=== PATIENT | female | born 1940 | race Caucasian/White ===

== ENCOUNTER → 2022-04-03 13:59 | Outpatient (BNVA) | payer MEDICARE, OTHER, SELFPAY | PROVIDERS: Family Provider Nurse Practitioner; PCP Student in an Organized Health Care Education/Training Program; Visit Provider Specialist | DX: M17.12 Unilateral primary osteoarthritis, left knee (principal) | CPT/HCPCS: 20610; 73560; 73565; 99203; 99204; J7326 ==

== ENCOUNTER → 2022-07-25 10:41 | Outpatient (BNVA) | payer MEDICARE, OTHER, SELFPAY | PROVIDERS: Family Provider Nurse Practitioner; PCP Student in an Organized Health Care Education/Training Program; Visit Provider Internal Medicine Cardiovascular Disease | DX: I25.10 Atherosclerotic heart disease of native coronary artery without angina pectoris (principal); M17.12 Unilateral primary osteoarthritis, left knee; I10 Essential (primary) hypertension; E78.2 Mixed hyperlipidemia; Z87.891 Personal history of nicotine dependence | CPT/HCPCS: 99213 ==

== ENCOUNTER → 2023-04-30 15:18 | Outpatient (BNVA) | payer MEDICARE, OTHER, SELFPAY | PROVIDERS: Family Provider Nurse Practitioner; PCP Registered Nurse; Referring Provider Registered Nurse; Visit Provider Internal Medicine | DX: E83.52 Hypercalcemia; I25.10 Atherosclerotic heart disease of native coronary artery without angina pectoris; I10 Essential (primary) hypertension; E78.5 Hyperlipidemia, unspecified | CPT/HCPCS: 80053; 82306; 82310; 83970; 99204 ==

== ENCOUNTER → 2023-07-02 10:57 | Outpatient (BNVA) | payer MEDICARE, OTHER, SELFPAY | PROVIDERS: Family Provider Nurse Practitioner; PCP Registered Nurse; Visit Provider Internal Medicine Cardiovascular Disease | DX: I25.10 Atherosclerotic heart disease of native coronary artery without angina pectoris (principal); I10 Essential (primary) hypertension; E78.2 Mixed hyperlipidemia; I65.29 Occlusion and stenosis of unspecified carotid artery; Z87.891 Personal history of nicotine dependence | CPT/HCPCS: 99214 ==

== ENCOUNTER 2023-07-14 07:33 | Outpatient (CLI) | payer MEDICARE, OTHER, SELFPAY ==
--- NOTE | 2023-07-14 08:00 | USCV_ITS ---
Casi Live Age: 82 Gender: F : 1940 Exam Date: 07/14/2023 07:48 Ordering Phys: Norah Bauman MD ([email or web address]) Technologist: ESTRELLITA [place] [facility] [place]: Stenosis Risk Factors: Previous Vascular Surgery: Right Brachial BP: / Left Brachial BP: / Right Left Velocity (cm/s) Spectral Plaque Velocity (cm/s) Spectral Plaque Syst/Diast Broadening Syst/Diast Broadening 71.70/ 12.10 Prox CCA 71.90 / 12.10 66.20/ 13.20 Mid CCA 63.90 / 12.10 57.70/ 9.10 Distal CCA 76.10 / 11.00 69.50/ 18.70 Prox ICA 59.50 / 15.60 67.80/ 18.20 Mid ICA 69.50 / 19.80 49.70/ 13.10 Distal ICA 47.70 / 15.00 62.80 ECA 77.20 0.97 ICA/CCA 0.91 Antegrade Vertebral Antegrade 45.00/ 9.40 cm/s 65.10/ 13.80 cm/s Tri Subclavian Tri 99.40 107.0 0 CONCLUSIONS Right ICA stenosis <50%. Mild atheromatous plaque right carotid bulb/ICA. Left ICA stenosis <50%. Mild atheromatous plaque left carotid bulb/ICA. Normal antegrade Doppler flow noted in the right vertebral artery. Normal antegrade Doppler flow noted in the left vertebral artery. Jaguar Ureña MD (Electronically Signed) Final Date: 14 July 2023 11:49 S
== END 2023-07-14 07:34 | disposition home or self-care (01) ==
LOC: RAD 07:33
PROVIDERS: Family Provider Nurse Practitioner; PCP Registered Nurse; Visit Provider Internal Medicine Cardiovascular Disease
DX: I65.23 Occlusion and stenosis of bilateral carotid arteries (principal)
CPT/HCPCS: 93880

== ENCOUNTER → 2023-07-24 09:29 | Outpatient (BNVA) | payer MEDICARE, OTHER, SELFPAY | PROVIDERS: Family Provider Nurse Practitioner; PCP Registered Nurse; Visit Provider Internal Medicine Cardiovascular Disease | DX: I25.10 Atherosclerotic heart disease of native coronary artery without angina pectoris (principal); I10 Essential (primary) hypertension; E78.2 Mixed hyperlipidemia; R06.02 Shortness of breath; I65.23 Occlusion and stenosis of bilateral carotid arteries; Z87.891 Personal history of nicotine dependence | CPT/HCPCS: 99214 ==

== ENCOUNTER 2023-07-30 10:59 | Outpatient (CLI) | payer MEDICARE, OTHER, SELFPAY ==
[2023-07-30 12:03] LABS: Calcium 9.2 mg/dL (8.5-10.5)
[2023-07-30 12:21] LABS: 25 Hydroxy Vitamin D 25 ng/mL (30-100); Alanine Aminotransferase 8 U/L (0-33); Albumin Level 4.1 g/dL (3.5-5.2); Alkaline Phosphatase 93 U/L (35-105); Anion Gap 13.1 (5-19); Aspartate Amino Transferase 14 U/L (0-32); Blood Urea Nitrogen 18 mg/dL (8-23); Calcium 9.2 mg/dL (8.5-10.5); Carbon Dioxide 26 mmol/L (22-29); Chloride 105 mmol/L (98-107); Globulin 2.6 g/dL (1.3-4.6); Glucose 104 mg/dL (65-115); Osmolality Calculated 292 mOsm/kg (285-295); Potassium 4.1 mmol/L (3.5-5.1); Sodium 140 mmol/L (136-145); Total Bilirubin 0.4 mg/dL (0.15-1.2); Total Protein 6.7 g/dL (6.6-8.7)
== END 2023-07-30 11:00 | disposition home or self-care (01) ==
LOC: LAB 11:02
PROVIDERS: Family Provider Nurse Practitioner; PCP Registered Nurse; Visit Provider Internal Medicine
DX: E55.9 Vitamin D deficiency, unspecified (principal); E78.5 Hyperlipidemia, unspecified; R07.89 Other chest pain; I25.10 Atherosclerotic heart disease of native coronary artery without angina pectoris; I10 Essential (primary) hypertension; M17.12 Unilateral primary osteoarthritis, left knee
CPT/HCPCS: 17000; 36415; 80053; 82306; 82310; 83970; 99203

== ENCOUNTER → 2023-08-05 08:55 | Outpatient (BNVA) | payer MEDICARE, OTHER, SELFPAY | PROVIDERS: Family Provider Nurse Practitioner; PCP Registered Nurse; Visit Provider Internal Medicine | DX: E83.52 Hypercalcemia (principal); I10 Essential (primary) hypertension; N25.81 Secondary hyperparathyroidism of renal origin | CPT/HCPCS: 99214 ==

== ENCOUNTER 2023-11-10 13:09 | Outpatient (CLI) | payer MEDICARE, OTHER, SELFPAY ==
[2023-11-10 14:05] LABS: Alanine Aminotransferase 11 U/L (0-33); Albumin Level 4.2 g/dL (3.5-5.2); Alkaline Phosphatase 91 U/L (35-105); Anion Gap 11.2 (5-19); Aspartate Amino Transferase 16 U/L (0-32); Blood Urea Nitrogen 16 mg/dL (8-23); Calcium 10.5 mg/dL (8.5-10.5); Carbon Dioxide 28 mmol/L (22-29); Chloride 103 mmol/L (98-107); Globulin 2.8 g/dL (1.3-4.6); Glucose 112 mg/dL (65-115); Osmolality Calculated 288 mOsm/kg (285-295); Potassium 4.2 mmol/L (3.5-5.1); Sodium 138 mmol/L (136-145); Total Bilirubin 0.3 mg/dL (0.15-1.2)
[2023-11-10 14:15] LABS: Calcium 10.4 mg/dL (8.5-10.5)
[2023-11-10 14:22] LABS: 25 Hydroxy Vitamin D 39 ng/mL (30-100); Parathyroid Hormone 85.5 pg/mL (15-65)
== END 2023-11-10 13:10 | disposition home or self-care (01) ==
LOC: LAB 13:10
PROVIDERS: PCP Registered Nurse; Visit Provider Internal Medicine
DX: E83.52 Hypercalcemia (principal); N25.81 Secondary hyperparathyroidism of renal origin
CPT/HCPCS: 36415; 80053; 82306; 82310; 83970

== ENCOUNTER → 2023-11-18 09:37 | Outpatient (BNVA) | payer MEDICARE, OTHER, SELFPAY | PROVIDERS: PCP Registered Nurse; Visit Provider Internal Medicine | DX: E83.52 Hypercalcemia (principal); N25.81 Secondary hyperparathyroidism of renal origin; I10 Essential (primary) hypertension | CPT/HCPCS: 99214 ==

== ENCOUNTER → 2024-01-21 15:09 | Outpatient (BNVA) | payer MEDICARE, OTHER, SELFPAY | PROVIDERS: PCP Registered Nurse; Visit Provider Internal Medicine Cardiovascular Disease | DX: R07.9 Chest pain, unspecified (principal) | CPT/HCPCS: 93005 ==

== ENCOUNTER 2024-05-12 11:54 | Outpatient (CLI) | payer MEDICARE, OTHER, SELFPAY ==
[2024-05-12 12:56] LABS: Calcium 10.1 mg/dL (8.5-10.5); Parathyroid Hormone 96.4 pg/mL (15-65)
[2024-05-12 13:00] LABS: 25 Hydroxy Vitamin D 36 ng/mL (30-100)
== END 2024-05-12 11:55 | disposition home or self-care (01) ==
LOC: LAB 11:57
PROVIDERS: PCP Registered Nurse; Visit Provider Internal Medicine
DX: E83.52 Hypercalcemia (principal); N25.81 Secondary hyperparathyroidism of renal origin
CPT/HCPCS: 36415; 82306; 82310; 83970

== ENCOUNTER → 2024-05-18 10:09 | Outpatient (BNVA) | payer MEDICARE, OTHER, SELFPAY | PROVIDERS: PCP Registered Nurse; Visit Provider Internal Medicine | DX: E55.9 Vitamin D deficiency, unspecified (principal); N25.81 Secondary hyperparathyroidism of renal origin; I10 Essential (primary) hypertension | CPT/HCPCS: 99214 ==

== ENCOUNTER → 2024-06-21 12:06 | Outpatient (BNVA) | payer MEDICARE, OTHER, SELFPAY | PROVIDERS: PCP Registered Nurse; Visit Provider Internal Medicine Cardiovascular Disease | DX: R06.02 Shortness of breath | CPT/HCPCS: 36415; 80048; 83880; 99214 ==

== ENCOUNTER 2024-10-05 10:58 | Observation (INO) | payer MEDICARE, OTHER, MEDICAID, SELFPAY ==
--- NOTE | 2024-10-01 10:14 | ANES.PREANE2 ---
Pre-Anesthetic Assessment Height/Weight: Height 5 ft 2 in Preop Diagnosis: Rectocele Operation Date: 10/05/24 08:50 Proposed Procedures p Sling Single Incision Midurethral 23076, 83554, N39.46, N81.6(Not Applicable) - Harsha Eubanks MD s Posterior Repair Posterior Colporrhaphy(Not Applicable) - Harsha Eubanks MD Was Beta Loan taken within 24 hours: Yes Was Clonidine taken within 24 hours: N/A Social No alcohol and No tobacco Exam alert, oriented x 3, clear to auscultation bilaterally and regular rate & rhythm Airway Submandibular: within normal limits Cervical ROM: within normal limits Mallampati: Class II Dentition: full Comments: Comments: Missing bottom teeth, denies any loose Anesthetic Plan ASA status: 2 Anesthesia: General Other: No prior issues with anesthesia Plan to be n.p.o. at midnight prior to procedure History of hypertension on amlodipine, losartan and carvedilol. GERD Denies any pulmonary issues EKG sinus bradycardia with old [place] Plan for general anesthetic Medications/Allergies Home Medications ?Medication ?Instructions ?Recorded ?Confirmed ?Last Taken ?Type cetirizine 10 mg tablet 5 mg PO DAILY PRN Allergy Symptoms 12/30/19 10/01/24 Unknown History gabapentin 300 mg capsule 300 mg PO BID 12/30/19 10/01/24 10/01/24 History magnesium oxide 400 mg (241.3 mg 400 mg PO DAILY 12/30/19 10/01/24 10/01/24 History magnesium) tablet aspirin 325 mg tablet 81 mg PO DAILY 07/02/23 10/01/24 10/01/24 History rosuvastatin 20 mg tablet 20 mg PO DAILY #90 tabs 07/02/23 10/01/24 09/30/24 Rx tamsulosin 0.4 mg capsule 0.4 mg PO DAILY 07/02/23 10/01/24 10/01/24 History lidocaine 5 % topical ointment 1 applic topical DAILY PRN pain 05/28/24 10/01/24 Unknown Rx #50 grams oxybutynin chloride 5 mg tablet 5 mg PO DAILY #90 tabs 05/28/24 10/01/24 Unknown Rx amlodipine 10 mg tablet 10 mg PO DAILY 10/01/24 10/01/24 10/01/24 History carvedilol 12.5 mg tablet 12.5 mg PO BID 10/01/24 10/01/24 10/01/24 History losartan 25 mg tablet 25 mg PO DAILY 10/01/24 10/01/24 10/01/24 History Allergies Allergy/AdvReac Type Severity Reaction Status Date / Time fluticasone (From Advair Allergy Unknown unknown Verified 10/01/24 09:47 Diskus) salmeterol (From Advair Allergy Unknown unknown Verified 10/01/24 09:47 Diskus) Sulfa (Sulfonamide Allergy Unknown unknown Verified 10/01/24 09:47 Antibiotics) [facility] Anesthesia Medical History Atypical chest pain The EKG from 12/30/2019 revealed sinus rhythm with a normal ST-T's. Normal CO interval. Normal QRS duration. Normal axis. SOB (shortness of breath) Pt has a history of smoking . Pt had sleep apnea ASHD (arteriosclerotic heart disease) Hypertension OK was done a month ago Hyperlipidemia Surgical History Hx of cholecystectomy H/O: hysterectomy History of appendectomy History of intestinal surgery Family History Mother Cancer Ovarian cancer Brother Lung disease Cancer Heart disease Hypertension Other Congestive heart failure (CHF) Denies family history of Prostate cancer Diabetes CAD (coronary artery disease) Clotting disorder Dementia Hyperlipidemia Chronic kidney disease (CKD) Breast cancer Suicide Anesthesia complication Bleeding disorder Uterine cancer Thyroid disease Stroke Social History Smoking and tobacco/nicotine status: never used tobacco/nicotine Alcohol intake: never Substance/Drug Use: never Data Anesthesia Cardiac Studies: No Data to Display
[2024-10-01 11:13] LABS: Basophils % 0.6 %; Eosinophils # 0.2 10^3/uL (0.0-0.8); Eosinophils % 2.4 %; Hematocrit 41.3 % (36-47); Lymphocytes # 1.7 10^3/uL (0.8-4.8); Mean Corpuscular HGB Conc 32.4 g/dL (30-55); Mean Corpuscular Volume 92.6 fl (85-98); Mean Platelet Volume 10.3 fL (7.4-10.4); Monocytes # 0.6 10^3/uL (0.2-0.9); Monocytes % 9.1 %; Neutrophils # 4.14 10^3/uL (1.8-7.7); Neutrophils % 62.7 %; Nucleated Red Blood Cells % 0 %; Platelet Count 262 10^3/cmm (157-399); Red Blood Count 4.46 10^6/uL (3.85-5.65); Red Cell Distribution Width 13.3 % (12.1-15.1)
[2024-10-01 11:17] LABS: Bilirubin Urine Negative (Negative); Blood Urine Negative (Negative); Glucose Urine UA Negative (Normal); Ketones Urine Trace (Negative); Leukocyte Esterase Urine Trace (Negative); Nitrate Urine Negative (Negative); Protein Urine Negative (Negative); Specific Gravity, Urine 1.021 (1.005-1.030); Urine Appearance Clear (CLEAR); Urine Color Yellow (Yellow); Urobilinogen Urine 0.2 mg/dL (Negative)
[2024-10-01 11:22] LABS: Add Urine Microscopic? YES; Bacteria Urine None Seen /hpf; Hyaline Casts Urine 20.27 /lpf; Squamous Epithelial Cell Urine 0-5 /hpf (0-5); WBC Urine 0-5 /hpf (0-5)
[2024-10-01 11:33] LABS: Alanine Aminotransferase 13 U/L (0-33); Albumin Level 4.5 g/dL (3.5-5.2); Alkaline Phosphatase 74 U/L (35-105); Anion Gap 10.9 (5-19); Aspartate Amino Transferase 18 U/L (0-32); Blood Urea Nitrogen 12 mg/dL (8-23); Calcium 10.8 mg/dL (8.5-10.5); Carbon Dioxide 30 mmol/L (22-29); Chloride 103 mmol/L (98-107); Globulin 2.5 g/dL (1.3-4.6); Glucose 112 mg/dL (65-115); Osmolality Calculated 291 mOsm/kg (285-295); Potassium 3.9 mmol/L (3.5-5.1); Sodium 140 mmol/L (136-145); Total Bilirubin 0.4 mg/dL (0.15-1.2)
[2024-10-01 11:38] LABS: Add Urine Culture? No; UA Slide Review UA Slide Review Perf
[2024-10-05] VITALS (18 sets, daily range): BP systolic 106–164; BP diastolic 57–78; PULSE 60–93; RESP 14–18; TEMP 36.5–36.9; O2SAT 92–99; BMI 33.0
[2024-10-05] MEDS: sodium chloride 0.9% 1,000 ML 30 ML IV (09:12)
[2024-10-05] MEDS: enoxaparin 40 mg/0.4 mL Syringe SUBCUT (09:12)
[2024-10-05] MEDS: metroNIDAZOLE IV 500 MG/100 ML PREMIX 100 MG IV (09:13)
--- NOTE | 2024-10-05 09:55 | W.PM.OPSUD ---
Surgery/Procedure H&P Update DATE OF PROCEDURE: October 05, 2024 DATE H&P PERFORMED: 09/27/24 H&P UPDATE INFORMATION: I have reviewed H&P completed within last 30 days, I have examined patient prior to procedure and No changes to prior documentation PREOP DIAGNOSIS: mixed incotinece, rectocele PLANNED PROCEDURE: Operation Date: 10/05/24 10:25 Proposed Procedures p Sling Single Incision Midurethral 39963, 10536, N39.46, N81.6(Not Applicable) - Harsha Eubanks MD s Posterior Repair Posterior Colporrhaphy(Not Applicable) - Harsha Eubanks MD
--- NOTE | 2024-10-05 09:58 | P.ANESUD_ITS ---
Pre-Anesthetic Update Pre-Anesthetic Assessment: Date of Surgery/Procedure: 10/05/24 Preop Anette gnosis: mixed incotinece, rectocele Proposed Procedure: Operation Date: 10/05/24 10:25 Proposed Procedures p Sling Single Incision Midurethral 32472, 68777, N39.46, N81.6(Not Applicable) - Harsha Eubanks MD s Posterior Repair Posterior Colporrhaphy(Not Applicable) - Harsha Eubanks MD Changes from Pre-Anesthetic Assessment: No changes since patient was seen in [place] [facility] last week. NPO since yesterday evening Plan for general anesthesia Last Intake: Intake Last Liquid Date 10/04/24 Last Liquid Time 21:00 Last Solid Date 10/04/24 Last Solid Time 19:00 Vitals: Temperature 97.9 F 10/05/24 08:52 Temperature Source Temporal Artery S can 10/05/24 08:52 Pulse Rate 71 10/05/24 08:52 Respiratory Rate 17 10/05/24 08:52 Blood Pressure 125/63 10/05/24 08:52 Blood Pressure Chey n 83 10/05/24 08:52 Pulse Oximetry 94 10/05/24 08:52 Oxygen Delivery Me thod Room Air 10/05/24 08:53 Cardiac Studies: No Data to Display
[2024-10-05] MEDS: ceFAZolin 2,000 mg SDV 2000 MG IVP (10:10)
[2024-10-05] MEDS: lidocaine-epi 2% PF 1:200,000 20 mL SDV XX (10:38)
--- NOTE | 2024-10-05 11:11 | W.PM.BPON ---
Date of Procedure: 10/05/24 Surgeon: Harsha Eubanks MD Spinning And Winding Supervisor(s): Procedure(s) performed: Mid urethral sling Findings of the procedure(s): Urethral hypermobility Estimated blood loss: 25 Specimen(s) removed: Post-operative diagnosis: Status post mid urethral sling
--- NOTE | 2024-10-05 11:12 | PM.OP ---
Operative Report Date of procedure: October 05, 2024 Pre-op diagnosis: Mixed urinary incontinence Post-op diagnosis: same Procedure done: Mid urethral sling Implants: Coloplast Altis sling Surgeon: Harsha Eubanks MD Estimated blood loss (mL): 25 Procedure: After obtaining informed consent, the patient was taken to the operating room and placed in the supine position, given general anesthesia, and prepped and draped in sterile fashion. The abdomen, vulva and vagina were prepped and draped in a sterile manner. A time out procedure was performed. The anterior vaginal mucosa beneath the midurethra was infiltrated with 2% lidocaine with epinephrine. A vertical midline incision was made beneath the midurethra, nearly 1.5 cm length. Careful submucosal dissection was performed bilaterally up to the interior portion of the inferior pubic ramus. The insertion of adductor longus tendon on the patient?s pubic ramus was identified as reference land irma. Palpated the notch along the internal edge of ischiopubic ramus where the adductor longus tendon and the inferior pubic ramus meet. The Altis single incision sling (SIS) was selected. Then the needle of the SIS inserted aiming at the location of this notch. One of the integrated self-fixating tips place onto the needle by sliding it over the end of the needle. The needle/sling assembly was inserted toward the location of identified reference notch making sure that the flat of the handle is perpendicular to the desired path. The needle was tracked along the posterior surface of the ischiopubic ramus until the midline irma on the mesh is approximately at the midline position under the urethra. The needle was removed and the same was repeated on the contralateral side until the appropriate sling tension under the urethra was achieved ensuring that the mesh lays flat. The needle was removed and vaginal incision was closed in a running interlocking fashion with 2-0 Vicryl. The Bernal catheter was noted with clear urine. Excellent hemostasis was obtained. A vaginal pack is placed overnight as postoperative support for the vaginal tissues after graft placement and closure of vaginal incisions. Sponge, lap, needle, and instrument counts were correct times three. The patient was taken to the recovery room, awake and in stable condition.
--- NOTE | 2024-10-05 11:53 | ANE.PACU2 ---
Inpatient post-anesthesia follow up: Airway intact: Yes Vital signs: Temperature 98.4 F Pulse Rate 64 Respiratory Rate 17 Blood Pressure 127/58 Pulse Oximetry 96 Oxygen Delivery Me thod Room Air Oxygen Flow Rate 2 Fraction of Inspir ed Oxygen Hydration adequate: Yes Nausea and vomiting: No Pain level: 1 Mental status: Baseline
--- NOTE | 2024-10-05 12:11 | PC.NURSE ---
report given to Jaz Orozco RN - notified nurse during phone report and room hand off (SUHAIL Eugene) that pt did have vaginal packing - pt resting with no distress noted upon this nurse exiting - BP 132/63 - 02 90% on 2L NC - temp 97.7 - pulse 69
[2024-10-05] MEDS: HYDROcodone-acetaminophen 5-325 mg Tablet PO (12:41)
[2024-10-05] MEDS: ketorolac 30 mg/mL INJ IVP ×3 (12:42→23:27)
[2024-10-05] MEDS: dextrose 5%-lactated ringers 1,000 ML 125 ML IV (13:54)
[2024-10-05] MEDS: gabapentin 300 mg Capsule PO (17:51)
[2024-10-05] MEDS: docusate sodium 100 mg Capsule PO (17:51)
[2024-10-05] MEDS: carvedilol 12.5 mg Tablet PO (19:06)
[2024-10-05] MEDS: sodium chloride 0.9% 500 ML IV (22:01)
[2024-10-06 05:04] VITALS: BP 142/84; PULSE 71; RESP 14; TEMP 36.7; O2SAT 95
--- NOTE | 2024-10-06 05:11 | PC.NURSE ---
vaginal packing removed at 0507 by this RN. Patient tolerated well, packing intact.
[2024-10-06] MEDS: ketorolac 30 mg/mL INJ IVP (05:27)
--- NOTE | 2024-10-06 05:34 | PC.NURSE ---
catheter removal performed at 0515, catheter intact after removal and 800ml of urine noted in bag. patient tolerated procedure well.
[2024-10-06 05:42] LABS: Hematocrit 33.8 % (36-47); Mean Corpuscular HGB Conc 32.8 g/dL (30-55); Mean Corpuscular Hemoglobin 29.8 pg (27-33); Mean Corpuscular Volume 90.9 fl (85-98); Mean Platelet Volume 10.4 fL (7.4-10.4); Platelet Count 224 10^3/cmm (157-399); Red Blood Count 3.72 10^6/uL (3.85-5.65); Red Cell Distribution Width 13.3 % (12.1-15.1)
[2024-10-06] MEDS: amlodipine 5 mg Tablet 10 MG PO (08:52)
[2024-10-06] MEDS: docusate sodium 100 mg Capsule PO (08:53)
[2024-10-06] MEDS: gabapentin 300 mg Capsule PO (08:53)
[2024-10-06] MEDS: aspirin 81 mg EC Tablet PO (08:53)
[2024-10-06] MEDS: magnesium oxide 400 mg tablet PO (08:53)
[2024-10-06] MEDS: atorvastatin 40 mg Tablet 20 MG PO (08:53)
[2024-10-06] MEDS: ibuprofen 800 mg tablet PO (10:44)
[2024-10-06] MEDS: carvedilol 12.5 mg Tablet PO (10:44)
--- NOTE | 2024-10-06 11:04 | P.DS_ITS ---
Discharge Providers H[employer]CHO[employer] SPECIAL EDUCATION TEACHER Date of Admission: 10/05/24 10:58 Date of Discharge: 10/06/24 Attending Provider at Admission: Harsha Eubanks MD Attending Provider at Discharge: Harsha Eubanks MD Primary Care Provider: TIA Ragsdale Reason for Visit Reason for Visit: N81.6 Hospital Course Hospital Course Mrs. Live 83-year-old female with history of mixed urinary incontinence, mild cystocele. Admitted for planned mid urethral sling. Mid urethral sling was performed without complications mild cystocele resolved after the sling. Overnight observation was uneventful. She is afebrile and hemodynamically stable postoperative day 1. PVR within normal limits. Tolerating diet well. Ambulating without difficulty. She was counseled regarding pelvic rest for 6 weeks (no sex, no tampons, no vaginal douches). Return to the emergency room if any fever, increased bleeding or pain. Physical Exam Narrative: GA: Alert and oriented ?3. HEENT: WNL. Heart: Regular rate and rhythm. Lungs: Clear to auscultation bilaterally. Abdomen: Bowel sounds present, nontender. COMPLIANCE SPECIALIST: spotting bleeding. Extremities: No edema, no cyanosis, no calves pain. Urinary Catheter Management: Bernal: Cath Placed During This Visit: yes Urinary Catheter Date of Insertion: 10/05/24 Urinary Catheter Time of Insertion: 10:34 History History History 7 Term 7 0 Miscarriages/Ectopic 0 Living Children 5 Discharge Data Studies Completed and Pending Laboratory Results WBC 10.40 10^3/uL (3.29-11.43) 10/06/24 05:08 RBC 3.72 10^6/uL (3.85-5.65) L 10/06/24 05:08 Hgb 11.10 g/dL (11.27-16.99) L 10/06/24 05:08 Hct 33.8 % (36-47) L 10/06/24 05:08 MCV 90.9 fl (85-98) 10/06/24 05:08 MCH 29.8 pg (27-33) 10/06/24 05:08 MCHC 32.8 g/dL (30-55) 10/06/24 05:08 RDW 13.3 % (12.1-15.1) 10/06/24 05:08 Plt Count 224 10^3/cmm (157-399) 10/06/24 05:08 MPV 10.4 fL (7.4-10.4) 10/06/24 05:08 Neut % (Auto) 62.7 % 10/01/24 09:54 Lymph % (Auto) 25.0 % 10/01/24 09:54 [place] % (Auto) 9.1 % 10/01/24 09:54 Eos % (Auto) 2.4 % 10/01/24 09:54 Baso % (Auto) 0.6 % 10/01/24 09:54 Neut # (Auto) 4.14 10^3/uL (1.8-7.7) 10/01/24 09:54 Lymph # (Auto) 1.7 10^3/uL (0.8-4.8) 10/01/24 09:54 [place] # (Auto) 0.6 10^3/uL (0.2-0.9) 10/01/24 09:54 Eos # (Auto) 0.2 10^3/uL (0.0-0.8) 10/01/24 09:54 Baso # (Auto) 0.0 10^3/uL (0.0-0.1) 10/01/24 09:54 Nucleated RBC % (auto) 0 % 10/01/24 09:54 Nucleated RBCs # 0.0 /100WBC 10/01/24 09:54 Sodium 140 mmol/L (136-145) 10/01/24 09:54 Potassium 3.9 mmol/L (3.5-5.1) 10/01/24 09:54 Chloride 103 mmol/L (98-107) 10/01/24 09:54 Carbon Dioxide 30 mmol/L (22-29) H 10/01/24 09:54 Anion Gap 10.9 (5-19) 10/01/24 09:54 BUN 12 mg/dL (8-23) 10/01/24 09:54 Creatinine 0.7 mg/dL (0.5-0.9) 10/01/24 09:54 GFR Calculation Not Reportable 10/01/24 09:54 Glucose 112 mg/dL (65-115) 10/01/24 09:54 Calculated Osmolality 291 mOsm/kg (285-295) 10/01/24 09:54 Calcium 10.8 mg/dL (8.5-10.5) H 10/01/24 09:54 Total Bilirubin 0.4 mg/dL (0.15-1.2) 10/01/24 09:54 AST 18 U/L (0-32) 10/01/24 09:54 ALT 13 U/L (0-33) 10/01/24 09:54 Alkaline Phosphatase 74 U/L (35-105) 10/01/24 09:54 Total Protein 7.0 g/dL (6.6-8.7) 10/01/24 09:54 Albumin 4.5 g/dL (3.5-5.2) 10/01/24 09:54 Globulin 2.5 g/dL (1.3-4.6) 10/01/24 09:54 Urine Color Yellow (Yellow) 10/01/24 09:54 Urine Appearance Clear (CLEAR) 10/01/24 09:54 Urine pH 6.0 (5-7) 10/01/24 09:54 Ur Specific [place] 1.021 (1.005-1.030) 10/01/24 09:54 Urine Protein Negative (Negative) 10/01/24 09:54 Urine Glucose (UA) Negative (Normal) 10/01/24 09:54 Urine Ketones Trace (Negative) 10/01/24 09:54 Urine Blood Negative (Negative) 10/01/24 09:54 Urine Nitrate Negative (Negative) 10/01/24 09:54 Urine Bilirubin Negative (Negative) 10/01/24 09:54 Urine Urobilinogen 0.2 mg/dL (Negative) 10/01/24 09:54 Ur Leukocyte Esterase Trace (Negative) A 10/01/24 09:54 Urine RBC 6-10 /hpf (0-2) 10/01/24 09:54 Urine WBC 0-5 /hpf (0-5) 10/01/24 09:54 Ur Squamous Epith Cells 0-5 /hpf (0-5) 10/01/24 09:54 Amorphous Sediment Not Reportable 10/01/24 09:54 Urine Bacteria None seen /hpf (NONE) 10/01/24 09:54 Hyaline Casts 20.27 /lpf 10/01/24 09:54 Vitals Last Vital Signs Temp 98.1 F 10/06/24 05:04 Pulse 71 10/06/24 05:04 Resp 14 10/06/24 05:04 BP 142/84 10/06/24 05:04 Pulse Ox 95 10/06/24 05:04 O2 Del Method Room Air 10/06/24 05:04 O2 Flow Rate 2 10/05/24 13:06 Results Labs OB ([facility]): Hct 33.8 % (36-47) L 10/06/24 Hgb 11.10 g/dL (11.27-16.99) L 10/06/24 Plt Count 224 10^3/cmm (157-399) 10/06/24 Discharge Plan Discharge Patient Disposition: Home Condition: Stable Prescriptions: New acetaminophen 325 mg capsule 325 mg PO Q4H PRN (Reason: fever or pain) Qty: 60 0RF ibuprofen 800 mg tablet 800 mg PO TID PRN (Reason: pain) Qty: 60 0RF metronidazole 500 mg tablet 500 mg PO BID 14 Days Qty: 28 0RF nitrofurantoin macrocrystal 100 mg capsule 100 mg PO BID 3 Days Qty: 6 0RF Rx Instructions: must administer with a meal/food Continued magnesium oxide 400 mg (241.3 mg magnesium) tablet 400 mg PO DAILY gabapentin 300 mg capsule 300 mg PO BID cetirizine 10 mg tablet 5 mg PO DAILY PRN (Reason: Allergy Symptoms) aspirin 325 mg tablet 81 mg PO DAILY tamsulosin 0.4 mg capsule 0.4 mg PO DAILY rosuvastatin 20 mg tablet 20 mg PO DAILY Qty: 90 3RF lidocaine 5 % ointment 1 applic topical DAILY PRN (Reason: pain) Qty: 50 0RF Rx Instructions: Patient is allergic to corticosteroids oxybutynin chloride 5 mg tablet 5 mg PO DAILY Qty: 90 1RF carvedilol 12.5 mg tablet 12.5 mg PO BID Rx Instructions: TAKE 1 TABLET TWICE DAILY amlodipine 10 mg tablet 10 mg PO DAILY Rx Instructions: TAKE 1 TABLET EVERY DAY losartan 25 mg tablet 25 mg PO DAILY Rx Instructions: TAKE 1 TABLET EVERY DAY Discharge Orders: Discharge Order (Routine); Ordered 10/06/24 Ordered By: Harsha Eubanks Referrals: Tanesha Woods APN, ALFONSO [Nurse Practitioner] - 10/22/24 1:00 pm Discharge Diet: Usual diet Discharge Activity: Limit activity as instructed Patient Instructions: Urinary Bladder Suspension (DC), Acute Wound Care (DC), Opioid Safety (DC), OB Discharge Report, OB Food/Drug Interaction Guide, Opioid Safety, Post Anesthesia Care, Bladder Sling for Women (GEN) Activity Restrictions/Additional Instructions: 1. Please call [facility] on next working day to make your post-operative appointment in 2 weeks. 2. Please stay home until you come back to the clinic on first post- hospatilization check up. 3. Please follow instructions on your medications CAREFULLY. 4. If you have abdominal incision, do not cover it unless dressing is necessary because of drainage. OK to shower, but avoid bath. Leave steri-strips until they fall off. If they are still on one week after surgery, you may remove them. 5. If you had vaginal surgery or vaginal repair, Dr. Eubanks may instruct you to take SITZ bath. 6. Yellow, blood tinged odorous vaginal discharge is usually normal after hysterectomy or vaginal surgeries. 7. No SEXUAL INTERCOURSE, tampons, or douches until you are completely released from the post-operative care. 8. Avoid constipation by eating right and maybe using some Metamucil or Milk of Magnesia. 9. All prescription refills are given during the working hours. Please do no wait till it runs out. Call the clinic at [phone] before your medication runs out. The clinic will get in touch with your doctor to prescribe medications if necessary. 10. Please remain within 40 mile radius from our hospital because emergencies do happen now and then during the post-operative period. 11. If you have stairs at home, take one step at a time slowly and minimize the number of trips. It helps to stay in one floor for the next few days. No lifting except what you can lift by one hand until you are released from the post-operative care. 12. Driving is discouraged until you are well healed. It may be 3-4 weeks before you feel strong enough to drive. You should be able to turn and look through the rear window without pain and you should be able to push the brake pedal very hard without pain before you drive. No fast rules, but SAFETY should be your primary concern. DO NOT drive if you are on sedating medications such as narcotics. 13. Call the clinic (during working hours) to make urgent appointment or go to the Emergency room, if any of the following occurs: i. Vaginal bleeding becomes heavy, more than a period. ii. Incision becomes red and sore, or drains pus. iii. Your TEMPERATURE is over 100.4F or you have chill. iv. IV site becomes red and swollen (a little ``knot?? is usually OK) v. Persistent nausea and vomiting vi. Persistent constipation or diarrhea vii. Rash or allergic reaction to medications. 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
[2024-10-06 11:48] VITALS: BP 156/64; PULSE 67; RESP 16; TEMP 36.7; O2SAT 94
== END 2024-10-06 11:56 | disposition home or self-care (01) ==
LOC: OBGYN 11:00
PROVIDERS: Admitting Provider Obstetrics & Gynecology; PCP Registered Nurse; Visit Provider Obstetrics & Gynecology
PROC: (CPT 57288; principal; 2024-10-05 10:15)
DX: N39.46 Mixed incontinence (principal); N81.10 Cystocele, unspecified; I10 Essential (primary) hypertension; K21.9 Gastro-esophageal reflux disease without esophagitis; Z79.899 Other long term (current) drug therapy; I25.2 Old myocardial infarction; Z79.82 Long term (current) use of aspirin; Z88.2 Allergy status to sulfonamides; Z88.8 Allergy status to other drugs, medicaments and biological substances; E78.5 Hyperlipidemia, unspecified; G47.30 Sleep apnea, unspecified; I25.10 Atherosclerotic heart disease of native coronary artery without angina pectoris; Z90.710 Acquired absence of both cervix and uterus; Z90.49 Acquired absence of other specified parts of digestive tract; Z87.891 Personal history of nicotine dependence
CPT/HCPCS: 57288; 36415; 51798; 80053; 81001; 85025; 85027; 96374; 96376; A4216; C1713; G0378; J0690; J1100; J1200; J1650; J1885; J2405; J2704; J2710; J3010; J3490; J7030; J7040; J7121

== ENCOUNTER → 2024-12-01 09:25 | Outpatient (BNVA) | payer MEDICARE, OTHER, MEDICAID, SELFPAY | PROVIDERS: PCP Registered Nurse; Visit Provider Student in an Organized Health Care Education/Training Program | DX: M25.551 Pain in right hip (principal); M41.50 Other secondary scoliosis, site unspecified; M70.61 Trochanteric bursitis, right hip | CPT/HCPCS: 20610; 73502; 99204; J3301; J3490; J9999 ==

== ENCOUNTER → 2024-12-14 12:52 | Outpatient (BNVA) | payer MEDICARE, OTHER, MEDICAID, SELFPAY | PROVIDERS: PCP Registered Nurse; Visit Provider Orthopaedic Surgery | DX: M54.50 Low back pain, unspecified (principal); M48.062 Spinal stenosis, lumbar region with neurogenic claudication | CPT/HCPCS: 72110; 99203 ==

== ENCOUNTER 2024-12-17 12:01 | Outpatient (CLI) | payer MEDICARE, OTHER, MEDICAID, SELFPAY ==
--- NOTE | 2024-12-17 12:15 | MRR_ITS ---
PROCEDURE INFORMATION: Exam: MR Lumbar Spine Without Contrast Exam date and time: 12/17/2024 12:23 PM Age: 84 years old Clinical indication: Low back pain; Chronic lbp radiates down RT leg TECHNIQUE: Imaging protocol: Magnetic resonance imaging of the lumbar spine without contrast. COMPARISON: 1. MR lumbar spine wo/w con [id number] 12/10/2018 8:26 AM 2. CR XR lumbar spine min 4V [id number] 12/14/2024 12:56 PM FINDINGS: Bones/joints: Mild levoscoliosis of the lumbar spine. No fracture. Slight grade 1 retrolisthesis at L1-L2, L2-L3, L3-L4, and L5-S1. Advanced multilevel lumbar spondylosis with intervertebral disc height loss and disc desiccation. Spinal cord: Visualized cord, conus medullaris and cauda equina are unremarkable without compression. Small perineural cyst at the S2 level. L1-L2: Mild disc bulge and bilateral facet arthropathy. Mild ligamentum flavum thickening. Mild narrowing of bilateral subarticular recesses. Mild spinal canal stenosis. Moderate left and mild right neural foraminal narrowing. L2-L3: Disc bulge, ligamentum flavum thickening, and bilateral facet arthropathy. Narrowing of the subarticular recesses bilaterally. Moderate spinal canal stenosis. Moderate to severe right and moderate left neural foraminal narrowing. L3-L4: Disc bulge, ligamentum flavum thickening, and bilateral facet arthropathy. Narrowing of the subarticular recesses bilaterally, right worse than left. Progressed moderate spinal canal stenosis. Moderate bilateral neural foraminal narrowing. L4-L5: Disc bulge, ligamentum flavum thickening, and bilateral facet arthropathy. Narrowing of the subarticular recesses bilaterally with impingement of the descending L5 nerve roots. Progressed severe spinal canal stenosis. Moderate bilateral neural foraminal narrowing. L5-S1: Mild central disc protrusion and bilateral facet arthropathy. Impingement of bilateral subarticular recesses with impingement of the descending S1 nerve roots. Moderate spinal canal stenosis. Moderate bilateral neural foraminal narrowing. Soft tissues: Unremarkable. MR/MR lumbar spine wo con* [id number] IMPRESSION: 1. Advanced multilevel lumbar spondylosis with progressed severe spinal canal stenosis at L4-L5 and moderate stenosis and L5-S1. 2. Narrowing of the subarticular recesses at multiple levels with impingement of the descending nerve roots. 3. Moderate to advanced facet arthropathy in the lower lumbar spine with multilevel neural foraminal narrowing as detailed above.
== END 2024-12-17 12:02 | disposition home or self-care (01) ==
PROVIDERS: PCP Registered Nurse; Visit Provider Orthopaedic Surgery
DX: M47.896 Other spondylosis, lumbar region (principal); M48.061 Spinal stenosis, lumbar region without neurogenic claudication; M48.07 Spinal stenosis, lumbosacral region; M41.86 Other forms of scoliosis, lumbar region; M51.369 Other intervertebral disc degeneration, lumbar region without mention of lumbar back pain or lower extremity pain; G96.191 Perineural cyst; M24.28 Disorder of ligament, vertebrae; R93.7 Abnormal findings on diagnostic imaging of other parts of musculoskeletal system; M51.27 Other intervertebral disc displacement, lumbosacral region; M47.897 Other spondylosis, lumbosacral region
CPT/HCPCS: 72148

== ENCOUNTER → 2025-01-06 15:28 | Outpatient (BNVA) | payer MEDICARE, OTHER, MEDICAID, SELFPAY | PROVIDERS: PCP Registered Nurse; Visit Provider Orthopaedic Surgery | DX: Z09 Encounter for follow-up examination after completed treatment for conditions other than malignant neoplasm (principal) | CPT/HCPCS: 99214 ==

== ENCOUNTER → 2025-01-12 10:31 | Outpatient (BNVA) | payer MEDICARE, OTHER, MEDICAID, SELFPAY | PROVIDERS: PCP Registered Nurse; Referring Provider Orthopaedic Surgery; Visit Provider Nurse Practitioner Family | DX: M48.062 Spinal stenosis, lumbar region with neurogenic claudication (principal); M47.816 Spondylosis without myelopathy or radiculopathy, lumbar region | CPT/HCPCS: 99214 ==

== ENCOUNTER → 2025-01-17 14:17 | Outpatient (BNVA) | payer MEDICARE, OTHER, MEDICAID, SELFPAY | PROVIDERS: PCP Registered Nurse; Visit Provider Nurse Practitioner Family | DX: M79.18 Myalgia, other site (principal); M48.062 Spinal stenosis, lumbar region with neurogenic claudication; M47.816 Spondylosis without myelopathy or radiculopathy, lumbar region | CPT/HCPCS: 20553; 99214; J1010; J3490 ==

== ENCOUNTER → 2025-01-31 13:00 | Outpatient (BNVA) | payer MEDICARE, OTHER, MEDICAID, SELFPAY | PROVIDERS: PCP Registered Nurse; Visit Provider Nurse Practitioner Family | DX: M48.062 Spinal stenosis, lumbar region with neurogenic claudication (principal); M47.816 Spondylosis without myelopathy or radiculopathy, lumbar region | CPT/HCPCS: 99214 ==

== ENCOUNTER → 2025-02-09 13:31 | Outpatient (BNVA) | payer MEDICARE, OTHER, MEDICAID, SELFPAY | PROVIDERS: PCP Registered Nurse; Visit Provider Anesthesiology Pain Medicine | DX: M54.16 Radiculopathy, lumbar region (principal); M48.062 Spinal stenosis, lumbar region with neurogenic claudication; M54.9 Dorsalgia, unspecified | CPT/HCPCS: 64483; 64484; J1100; J3490; J9999 ==

== ENCOUNTER → 2025-02-24 13:28 | Outpatient (BNVA) | payer MEDICARE, OTHER, MEDICAID, SELFPAY | PROVIDERS: PCP Registered Nurse; Visit Provider Nurse Practitioner Family | DX: M48.062 Spinal stenosis, lumbar region with neurogenic claudication (principal); M47.816 Spondylosis without myelopathy or radiculopathy, lumbar region | CPT/HCPCS: 99214 ==

== ENCOUNTER → 2025-03-15 13:51 | Outpatient (BNVA) | payer MEDICARE, OTHER, MEDICAID, SELFPAY | PROVIDERS: PCP Registered Nurse; Visit Provider Anesthesiology Pain Medicine | DX: M47.816 Spondylosis without myelopathy or radiculopathy, lumbar region (principal); M48.062 Spinal stenosis, lumbar region with neurogenic claudication; M54.9 Dorsalgia, unspecified | CPT/HCPCS: 64493; 64494; 64495; J3490; J9999 ==

== ENCOUNTER → 2025-03-29 09:38 | Outpatient (BNVA) | payer MEDICARE, MEDICAID, SELFPAY | PROVIDERS: PCP Registered Nurse; Visit Provider Nurse Practitioner Family | DX: M48.062 Spinal stenosis, lumbar region with neurogenic claudication (principal); M47.816 Spondylosis without myelopathy or radiculopathy, lumbar region | CPT/HCPCS: 99214 ==

== ENCOUNTER → 2025-04-11 15:21 | Outpatient (BNVA) | payer MEDICARE, MEDICAID, SELFPAY | PROVIDERS: PCP Registered Nurse; Visit Provider Internal Medicine Cardiovascular Disease | DX: I25.10 Atherosclerotic heart disease of native coronary artery without angina pectoris (principal); I10 Essential (primary) hypertension; E78.5 Hyperlipidemia, unspecified; I65.23 Occlusion and stenosis of bilateral carotid arteries; Z79.82 Long term (current) use of aspirin | CPT/HCPCS: 99214 ==

== ENCOUNTER → 2025-04-13 09:52 | Outpatient (BNVA) | payer MEDICARE, OTHER, MEDICAID, SELFPAY | PROVIDERS: PCP Registered Nurse; Visit Provider Anesthesiology Pain Medicine | DX: M47.816 Spondylosis without myelopathy or radiculopathy, lumbar region (principal) | CPT/HCPCS: 64493; 64494; 64495; J3490; J9999 ==

== ENCOUNTER → 2025-04-27 14:45 | Outpatient (BNVA) | payer MEDICARE, OTHER, MEDICAID, SELFPAY | PROVIDERS: PCP Registered Nurse; Visit Provider Nurse Practitioner Family | DX: M48.062 Spinal stenosis, lumbar region with neurogenic claudication (principal); M47.816 Spondylosis without myelopathy or radiculopathy, lumbar region | CPT/HCPCS: 99214 ==

== ENCOUNTER 2025-05-05 16:13 | Emergency (ER) | payer MEDICARE, OTHER, MEDICAID, SELFPAY ==
[2025-05-05] VITALS (7 sets, daily range): BP systolic 113–153; BP diastolic 50–96; PULSE 55–64; RESP 15–18; TEMP 36.8; O2SAT 94–97; BMI 30.9
--- OUTSIDE RECORDS SUMMARY | 2025-05-05 16:16 | XMS_ITS | Encounter Summary ---
Author Organization [facility] Address [address] [place] [address] Care Team Providers Care Hogshead Stock Clerk Name Role Phone Cherelle Spicer MD Primary Care Provider [phone] Encounter Details Date Type Department Care Team (Latest Contact Info) Description 07/09/1999 [facility] [address] [place] [address] Carlos Escobedo, [place] [address] Acute bronchitis (Primary Dx) Social History Tobacco Use Types Packs/Day Years Used Date Smoking Tobacco: Never Assessed Comments Unknown Sex and Gender Information Value Date Recorded Sex Assigned at Not on file Legal 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
--- OUTSIDE RECORDS SUMMARY | 2025-05-05 16:16 | XMS_ITS | Encounter Summary ---
Author Organization [facility] Address [address] [place] [address] Care Team Providers Care Pick Up Truck Driver Name Role Phone Cherelle Spicer MD Primary Care Provider Encounter Details Date Type Department Care Team (Latest Contact Info) Description 04/09/2002 Outpatient Historical [facility] [place] [address] [facility] [address] [place] [id number] Vera Del Real MD NO ADDRESS ON FILE JOINT PAIN-JOINT NEC (Primary Dx) Social History Tobacco Use Types Packs/Day Years Used Date Smoking Tobacco: Never Assessed Comments Unknown Sex and Gender Information Value Date Recorded Sex Assigned at Not on file Legal Sex Female 5:53 AM FRONT OFFICE SPEC Gender Identity Not on file Sexual Orientation Not on file documented as of this encounter Plan of Treatment Not on file documented as of this encounter Visit Diagnoses Diagnosis Pain in joint, other specified sites- Primary documented in this encounter Care Teams Pick Up Truck Driver Relationship Specialty Start Date End Date Cherelle Spicer [place] [address] PCP - General Family Practice 12/31/18 documented as of this encounter
--- OUTSIDE RECORDS SUMMARY | 2025-05-05 16:16 | XMS_ITS | Encounter Summary ---
Author Organization [facility] Address [address] [place] [address] Care Team Providers Care Medical Office Technologist Name Role Phone Cherelle Spicer MD Primary Care Provider [phone] Encounter Details Date Type Department Care Team (Latest Contact Info) Description 06/20/1999 Outpatient Historical [facility] [address] [place] [address] Carlos Escobedo, DO [address] [place] [address] Contact dermatitis and other eczema due to other specified agent (Primary Dx) Social History Tobacco Use Types Packs/Day Years Used Date Smoking Tobacco: Never Assessed Comments Unknown Sex and Gender Information Value Date Recorded Sex Assigned at Not on file Legal Sex Female 5:53 AM DUCO POLISHER Gender Identity Not on file Sexual Orientation Not on file documented as of this encounter Plan of Treatment Not on file documented as of this encounter Visit Diagnoses Diagnosis Contact dermatitis and other eczema due to other specified agent- Primary documented in this encounter Care Teams Medical Office Technologist Relationship Specialty Start Date End Date Cherelle Spicer MD [address] [place] [address] PCP - General Family Practice 12/31/18 documented as of this encounter
--- OUTSIDE RECORDS SUMMARY | 2025-05-05 16:16 | XMS_ITS | Encounter Summary ---
Author Organization [facility] Address [address] [place] [address] Care Team Providers Care Refrigeration Systems Installer Name Role Phone Cherelle Spicer MD Primary Care Provider Encounter Details Date Type Department Care Team (Latest Contact Info) Description 10/05/1998 Outpatient Historical [facility] Family Medicine [place] [address] [facility] [address] [place] [address] Carlos Escobedo, DO [address] [place], [place] [address] Acute pharyngitis (Primary Dx); Rash and other nonspecific skin eruption Social History Tobacco Use Types Packs/Day Years Used Date Smoking Tobacco: Never Assessed Comments Unknown Sex and Gender Information Value Date Recorded Sex Assigned at Not on file Legal Sex Female 5:53 AM LEGAL PROJECT MANAGER Gender Identity Not on file Sexual Orientation Not on file documented as of this encounter Plan of Treatment Not on file documented as of this encounter Visit Diagnoses Diagnosis Acute pharyngitis- Primary Rash and other nonspecific skin eruption documented in this encounter Care Teams Refrigeration Systems Installer Relationship Specialty Start Date End Date Cherelle Spicer MD [address] [place] [address] PCP - General Family Practice 12/31/18 documented as of this encounter
--- OUTSIDE RECORDS SUMMARY | 2025-05-05 16:16 | XMS_ITS | Encounter Summary ---
Author Organization [facility] Address [address] [place] [address] Care Team Providers Care Top Polisher Name Role Phone Cherelle Spicer MD Primary Care Provider Encounter Details Date Type Department Care Team (Latest Contact Info) Description 08/06/2002 Outpatient Historical [facility] Family Medicine [place] 104 [facility] [address] [place] [address] Alessio Hough MD [address] [address] Pain in limb (Primary Dx) Social History Tobacco Use Types Packs/Day Years Used Date Smoking Tobacco: Never Assessed Comments Unknown Sex and Gender Information Value Date Recorded Sex Assigned at Not on file 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
--- OUTSIDE RECORDS SUMMARY | 2025-05-05 16:16 | XMS_ITS | Encounter Summary ---
Author Organization [facility] Address [address] [place] [address] Care Team Providers Care Crude Oil Treater Name Role Phone Cherelle Spicer MD Primary Care Provider Encounter Details Date Type Department Care Team (Latest Contact Info) Description 08/13/2002 [facility] [address] [place] [address] Vera Del Real MD NO ADDRESS ON FILE ACUTE BRONCHITIS (Primary Dx) Social History Tobacco Use Types Packs/Day Years Used Date Smoking Tobacco: Never Assessed Comments Unknown Sex and Gender Information Value Date Recorded Sex Assigned at Not on file Legal Sex Female 5:53 AM STOREROOM ATTENDANT Gender Identity Not on file Sexual Orientation Not on file documented as of this encounter Plan of Treatment Not on file documented as of this encounter Visit Diagnoses Diagnosis Acute bronchitis- Primary documented in this encounter Care Teams Crude Oil Treater Relationship Specialty Start Date End Date Cherelle Spicer MD [address] [place] [address] PCP - General Family Practice 12/31/18 documented as of this encounter
--- OUTSIDE RECORDS SUMMARY | 2025-05-05 16:16 | XMS_ITS | Clinical Summary ---
Author Organization [email or web address] [email or web address] Address [address] [address] Phone Care Team Providers Care Paper Cup Machine Operator Name Role Phone Reddy Johnson SALES ROUTE DRIVER HELPER Primary Care Provider [phone] Allergies Active Allergy Reactions Criticality Noted Date Comments Fluticasone Propion-Salmeterol 06/05 Mouth sore Sulfa (Sulfonamide Antibiotics) Rash Low 08/20 Medications amLODIPine (Norvasc) 10 mg tablet Take 10 mg by mouth every night. 2 Active benzonatate (Tessalon) 100 mg capsule Take 100 mg by mouth every 8 (eight) hours if needed for cough. 2 Active carvediloL (Coreg) 12.5 mg tablet Take 12.5 mg by mouth 2 (two) times a day. 2 Active gabapentin (Neurontin) 300 mg capsule Take 300 mg by mouth 2 (two) times a day. 2 Active escitalopram (Lexapro) 20 mg tablet Take 20 mg by mouth 1 (one) time each day. 2 Active nystatin (Mycostatin) cream Apply 1 g topically 3 (three) times a day if needed. 2 Active rosuvastatin (Crestor) 20 mg tablet Take 20 mg by mouth every night. 2 Active albuterol 2.5 mg /3 mL (0.083 %) nebulizer solution Take 2.5 mg by nebulization every 4 (four) hours if needed for wheezing. Active fluticasone furoate-vilante roL (BREO ELIPTA) 100-25 mcg/dose inhaler Inhale 1 puff 1 (one) time each day if needed. Active cetirizine (ZyrTEC) 10 mg tablet Take 10 mg by mouth 1 (one) time each day if needed. Active clotrimazole-be tamethasone (Lotrisone) cream Apply 1 application. topically 3 (three) times a day if needed. Active magnesium oxide (Mag-Ox) 400 mg tablet Take 400 mg by mouth every night. Active nitroglycerin (Nitrostat) 0.[address] 0.4 mg under the tongue every 5 (five) minutes if needed for chest pain. Active ascorbic acid (Vitamin C) 1,000 mg tablet Take 1,000 mg by mouth every night. Active pantoprazole (ProtoNix) 40 mg EC tablet Take 40 mg by mouth 1 (one) time each day before breakfast. Do not crush, chew, or split. Active ondansetron (Zofran) 4 mg tablet Take 4 mg by mouth every 8 (eight) hours if needed for nausea or vomiting. Active tamsulosin (Flomax) 0.4 mg 24 hr capsule Take 0.4 mg by mouth 1 (one) time each day. 3 Active losartan (Cozaar) 25 mg tablet Take 25 mg by mouth 1 (one) time each day. 3 Active Active Problems Problem Noted Date Diagnosed Date S/P total knee arthroplasty, left 03/10/2023 Chronic pain of left knee 01/07/2023 KAYODE (acute kidney injury) 10/10/2022 Chronic bronchitis 10/10/2022 Post-op pain 10/09/2022 Nausea & vomiting 10/09/2022 Arthritis of knee 07/05/2022 Overview (07/05/2022): Added automatically from request for surgery [id number] Hypertension 06/06/2022 Hyperlipidemia 06/06/2022 Hydronephrosis, left 06/06/2022 Pyelonephritis of left kidney 06/05/2022 OA (osteoarthritis) of knee 09/17/2012 Immunizations Immunization Administration Dates Next Due Influenza Split High Dose Pr eservative Free IM 05/15/2019,04/25/2018,05/17/2017,05/11,05/13/2015,06/12/2013 Influenza TIV (IM) 05/15/2012,05/30/2004 Influenza, Quadrivalent, High Dose 05/15/2022 Influenza, Seasonal, Quadriv alent, Adjuvanted 05/08/2021 Pneumococcal Conjugate 13-Valent 06/15/2015 Pneumococcal Polysaccharide 05/15/2012 Family History Medical History Relation Comments Cancer Daughter Diabetes Daughter Hypertension Daughter Cancer Mother Heart disease Mother Ovarian cancer Mother Malig Hyperthermia Neg Hx Pseudochol deficiency Neg Hx Stroke Neg Hx Relation Status Comments Daughter Father Mother Social History Tobacco Use Types Packs/Day Years Used Date Smoking Tobacco: Former Cigarettes 09 06 1 965 - 1984 Smokeless Tobacco: Never Tobacco Cessation:Counseling Given: Not Answered Alcohol Use Standard Drinks/Week Comments Never 0 (1 standard drink = 0.6 oz pur e alcohol) [facility] Atonarpities Answer Date Recorded In the past 12 months has [employer], oil, or water [employer] threatened to shut off services in your home? No 02/24/2023 Humiliation, Afraid, Rape, and Kick questionnair e Answer Date Recorded Within the last year, have y ou been afraid of your partner or ex-partner? No 02/24/2023 Within the last year, have y ou been humiliated or emotionally abused in other ways by your partner or ex-partner? No Within the last year, have y ou been kicked, hit, slapped, or otherwise physically hurt by your partner or ex-partner? No 02/24/2023 Within the last year, have y ou been raped or forced to have any kind of sexual activity by your partner or ex-partner? No 02/24/2023 Social Connection and Isolation Panel Answer Date Recorded In a typical week, how many times do you talk on the phone with family, friends, or neighbors? Three times a week 02/24/2023 How often do you get togethe r with friends or relatives? Three times a week 02/24/2023 How often do you attend [facility] or buddhism services? More than 4 times per year 02/24/2023 Do you belong to any clubs o r organizations such as temple groups, unions, fraternal or athletic groups, or school groups? Yes 02/24/2023 How often do you attend meet ings of the clubs or organizations you belong to? More than 4 times per year 02/24/2023 Are you , , di vorced, , never , or living with a partner? 02/24/2023 AUDIT-C Answer Date Recorded Q1: How often do you have a drink containing alcohol? Never 02/24/2023 Q2: How many drinks containi ng alcohol do you have on a typical day when you are drinking? Patient does not drink Q3: How often do you have si x or more drinks on one occasion? Never 02/24/2023 Overall Financial Resource Strain (CARDIA) Answe r Date Recorded How hard is it for you to pa y for the very basics like food, housing, medical care, and heating? Not hard at all 02/24/2023 PHQ-2 Answer Date Recorded Patient Health Questionnaire-2 Score 0 11/26/2024 [facility] - Occupational Stress Questionnaire Answer Date Recorded Do you feel stress - tense, restless, nervous, or anxious, or unable to sleep at night because your mind is troubled all the time - these days? Only a little 02/24/2023 Exercise Vital Sign Answer Date Recorde d On average, how many days pe r week do you engage in moderate to strenuous exercise (like a brisk walk)? 7 days 02/24/2023 On average, how many minutes do you engage in exercise at this level? 10 min 02/24/2023 Hunger Vital Sign Answer Date Recorded Within the past 12 months, y ou worried that your food would run out before you got the money to buy more. Never true 02/25/20 23 Within the past 12 months, t he food you bought just didn't last and you didn't have money to get more. Never true 02/24/2023 PRAPARE - Transportation Answer Date Re corded Lack of Transportation (Medical) Not on file 02/24/2023 In the past 12 months, has l ack of transportation kept you from meetings, work, or from getting things needed for daily living? No 02/24/2023 Housing Stability Vital Sign Answer Harsh e Recorded In the last 12 months, was t here a time when you were not able to pay the mortgage or rent on time? No 02/24/2023 Number of Places Lived in the Last Year Not on f ile 02/24/2023 In the last 12 months, was t here a time when you did not have a steady place to sleep or slept in a senior living (including now)? No 02/24/2023 [facility] - Mental Health Answer Date Recorde d Little interest or pleasure in doing things Not at all 11/26/2024 Feeling down, depressed, or hopeless Not at all 11/26/2024 Feeling of Stress Not on file 11/26/2024 Comments No Sex and Gender Information Value Date Recorded Sex Assigned at Not on file Legal Sex Female 11:08 AM CDT Gender Identity Not on file Sexual Orientation Not on file Last Filed Vital Signs Vital Sign Reading Time Taken Comments Blood Pressure 154/72 11/26/2024 10:03 AM CDT Pulse 60 11/26/2024 10:03 AM CDT Temperature 36.5 C (97.7 F) 11/26/2024 10:03 AM CDT Respiratory Rate 20 11/26/2024 10:03 AM CDT Oxygen Saturation 96% 11/26/2024 10:03 AM CDT Inhaled Oxygen Concentration - - Weight 77.6 kg (171 lb) 11/26/2024 10:03 AM CDT Height 157.5 cm (5' 2 ) 11/26/2024 10:03 AM CDT Body Mass Index 31.28 11/26/2024 10:03 AM CDT Plan of Treatment Health Maintenance Due Date Last Done Comments Lipid Panel 1938 MMR Vaccines (1 of 1 - Standard series) 11/11/1939 DTaP,Tdap,and Td Vaccines (1 - Tdap) 1945 Varicella Vaccines (1 of 2 - 13+ 2-dose series) 11/11/1951 Social Drivers of Health (SDoH) 1956 Mammogram 1978 Zoster Vaccines (1 of 2) 1988 Medicare Initial AWV [id number] 10/16/2004 RSV Vaccines (1 - 1-dose 75+ series) 2013 Creatinine Level 10/10/2023 10/10/2022, , 06/07/2022, Additional history exists Potassium Level 10/10/2023 10/10/2022, 09/19, 06/07/2022, Additional history exists COVID-19 Vaccine ( season) 2025 Influenza Vaccine (#1) 2025 , 04/23/2023, 05/15/2022, Additional history exists Complete Fall Risk Assessment 11/26/2025 11/26/2024, 11/26/2024, 11/26/2024, Additional history exists Depression Screening 11/27/2025 11/26/2024 Pneumococcal Vaccine: 50+ Years Completed 08/18/2021, 06/15/2015, 05/15/2012 Pneumococcal Vaccine Completed 08/18/2021, 06/15/2015, 05/15/2012 HIB Vaccines Aged Out No longer eligi ble based on patient's age to complete this topic HPV Vaccines Aged Out No longer eligi ble based on patient's age to complete this topic Hepatitis A Vaccines Aged Out No long er eligible based on patient's age to complete this topic Hepatitis B Vaccines Aged Out No long er eligible based on patient's age to complete this topic IPV Vaccines Aged Out No longer eligi ble based on patient's age to complete this topic Meningococcal B Vaccine Aged Out No l onger eligible based on patient's age to complete this topic Meningococcal Vaccine Aged Out No judy grant eligible based on patient's age to complete this topic Rotavirus Vaccines Aged Out No longer eligible based on patient's age to complete this topic Medical Devices Implanted Type Area Sapphire Stylus Grinder Device Identifier Shelf Expiration Date Model / Serial / Lot Lens Lens Bilatera l: Eye Orthopedics Implant Orthopedics Implant Right: Knee Jrny Bcs Isrt Sz 3-4 Lt 12mm - [id number] Implanted:Qty : 1 on 03/10/2023 by Gerardo Villegas MD at [facility] Orthopedics Implant Left: Knee SMINO [id number] 07/02/2032 [id number] / / [id number] Description:PURCHASED ON # [id number] Rally Hv Bone Cement 40 Grams - [id number] Implanted:Qty : 2 on 03/10/2023 by Gerardo Villegas MD at [facility] Orthopedics Implant Left: Knee SMINO [id number] 09/17/2027 [id number] / / [id number] [employer] Lt Sz 4 - [id number] Implanted:Qty : 1 on 03/10/2023 by Gerardo Villegas MD at [facility] Orthopedics Implant Left: Knee SMINO [id number] 10/22/2032 [id number] / / [id number] Description:PURCHASED ON PO# [id number] Patella 32mm Oval Resurface - [id number] Implanted:Qty : 1 on 03/10/2023 by Gerardo Villegas MD at [facility] Orthopedics Implant Left: Knee SMINO [id number] 10/24/2032 [id number] / / [id number] Description:PURCHASED ON PO# [id number] Jrny Bcs Fem Lt Sz 5 - [id number] Implanted:Qty : 1 on 03/10/2023 by Gerardo Villegas MD at [facility] Orthopedics Implant Left: Knee SMINO [id number] 06/05/2031 [id number] / / [id number] Description:PURCHASED ON PO# [id number] Stent Lubri-Flex 4.8 X30cm - [id number] Implanted:Qty : 1 on 10/10/2022 by Dewey Mchugh MD at [facility] Urologicals Implant Left: Ureter BOSSI 06/19/2025 [id number] / / [id number] Stent Lubri-Flex 4.8 X30cm - [id number] Implanted:Qty : 1 on 11/04/2022 by Dewey Mchugh MD at [facility] Urologicals Implant Left: Ureter BOSSI 06/19/2025 [id number] / / [id number] Unknown Right: Knee Procedures Procedure Name Priority Date/Time Associated Diagnosis Comments BASIC METABOLIC PANEL Routine 10/10/2022 5:54 AM INSTRUMENT TECHNOLOGIST from Last 3 Months or Most Recently Relevant to Health Maintenance Results * (ABNORMAL) Basic Metabolic Profile (10/10/2022 5:54 AM INSTRUMENT TECHNOLOGIST) Glucose 106(H) 70 - 100 mg/dL LAB CHEMISTRY METHOD 10/10/2022 6:58 AM INSTRUMENT TECHNOLOGIST [facility] BUN 15 7 - 17 mg/dL LAB CHEMISTRY METHOD 10/10/2022 6:58 AM [facility] Creatinine 1.18(H) 0.52 - 1.04 mg/dl LAB CHEMISTRY METHOD 10/10/2022 6:58 AM INSTRUMENT TECHNOLOGIST [facility] BUN/Creatinine Ratio 13 12 - 17 LAB CHEMISTRY METHOD 10/10/2022 6:58 AM INSTRUMENT TECHNOLOGIST [facility] Sodium 137 135 - 145 mmol/L LAB CHEMISTRY METHOD 10/10/2022 6:58 AM [facility] Potassium 3.8 3.6 - 5.0 mmol/L LAB CHEMISTRY METHOD 10/10/2022 6:58 AM INSTRUMENT TECHNOLOGIST [facility] Chloride 106 101 - 111 mmol/L LAB CHEMISTRY METHOD 10/10/2022 6:58 AM [facility] Total Carbon Dioxide 29 22 - 30 mmol/L LAB CHEMISTRY METHOD 10/10/2022 6:58 AM INSTRUMENT TECHNOLOGIST [facility] Anion Gap 6(L) 9 - 17 mmol/L LAB CHEMISTRY METHOD 10/10/2022 6:58 AM [facility] Calcium 10.0 8.2 - 10.2 mg/dL LAB CHEMISTRY METHOD 10/10/2022 6:58 AM [facility] eGFR 46(L) >=60 LAB CHEMISTRY METHOD 10/10/2022 6:58 AM [facility] Comment:Moderate Risk of Chr onic Kidney Disease Blood Venous blood specimen / Unknown Venipuncture / Unknown 10/10/2022 5:54 AM INSTRUMENT TECHNOLOGIST 10/10/2022 6:23 AM [facility] Janae David MD LAB BLOOD ORDERABLES Final Result [facility] [address] [address] from Last 3 Months or Most Recently Relevant to Health Maintenance Insurance MEDICARE [employer] Advance Directives For more information, please contact: [phone] (7:30 AM - 5PM [facility], 7 days a week) * Full Code (Latest Code Status on File) Date Activated Date Inactivated Comments 11/04/2022 8:41 AM 11/04/2022 1:44 PM * Full Code Date Activated Date Inactivated Comments 10/09/2022 8:12 PM 10/10/2022 6:12 PM * Full Code Date Activated Date Inactivated Comments 06/05/2022 10:01 PM 06/07/2022 1:33 PM Care Teams Paper Cup Machine Operator Relationship Specialty Start Date End Date Reddy Johnson FNP [address] [place] [address] PCP - General Family Medicine 08/20/22
--- OUTSIDE RECORDS SUMMARY | 2025-05-05 16:16 | XMS_ITS | Encounter Summary ---
Author Organization [facility] Address [address] [place] [address] Care Team Providers Care Leaf Tier Name Role Phone Cherelle Spicer MD Primary Care Provider [phone] Encounter Details Date Type Department Care Team (Latest Contact Info) Description 05/12/2002 Outpatient Historical [facility] Family Medicine [place] [address] [facility] [address] [place] [address] Vera Del Real MD NO ADDRESS ON FILE SPASM OF MUSCLE (Primary Dx); JOINT PAIN-UNSPEC Social History Tobacco Use Types Packs/Day Years Used Date Smoking Tobacco: Never Assessed Comments Unknown Sex and Gender Information Value Date Recorded Sex Assigned at Not on file Legal Sex Female 5:53 AM CENTRAL LAB TECHNICIAN Gender Identity Not on file Sexual Orientation Not on file documented as of this encounter Plan of Treatment Not on file documented as of this encounter Visit Diagnoses Diagnosis Spasm of muscle- Primary Pain in joint, site unspecified documented in this encounter Care Teams Leaf Tier Relationship Specialty Start Date End Date Cherelle Spicer MD [address] [place] [address] PCP - General Family Practice 12/31/18 documented as of this encounter
--- OUTSIDE RECORDS SUMMARY | 2025-05-05 16:17 | XMS_ITS | Encounter Summary ---
Author Organization [facility] Address [address] [place] [address] Care Team Providers Care Radio Repair Teacher Name Role Phone Cherelle Spicer MD Primary Care Provider Encounter Details Date Type Department Care Team (Late st Contact Info) Description 08/31/2002 Outpatient Historical [facility] Medicine [address] [address] Social History Tobacco Use Types Packs/Day Years Used Date Smoking Tobacco: Never Assessed Comments Unknown Sex and Gender Information Value Date Recorded Sex Assigned at Not on file Legal Sex Female 5:53 AM MOLD DESIGN ENGINEER Gender Identity Not on file Sexual Orientation Not on file documented as of this encounter Plan of Treatment Not on file documented as of this encounter Visit Diagnoses Not on filedocumented in this encounter Care Teams Radio Repair Teacher Relationship Specialty Start Date End Date Cherelle Spicer MD [address] [place] [address] PCP - General Family Practice 12/31/18 documented as of this encounter
--- OUTSIDE RECORDS SUMMARY | 2025-05-05 16:17 | XMS_ITS | Encounter Summary ---
Author Organization [facility] Address [address] [place] [address] Care Team Providers Care Hospital Recruiter Name Role Phone Cherelle Spicer MD Primary Care Provider Encounter Details Date Type Department Care Team (Latest Contact Info) Description 05/30/2004 Outpatient Historical [facility] [address] [place] [address] Patricia Oreilly, PROCESS IMPROVEMENT MANAGER [address] [place] [address] Vaccine for influenza (Primary Dx) Social History Tobacco Use Types Packs/Day Years Used Date Smoking Tobacco: Never Assessed Comments Unknown Sex and Gender Information Value Date Recorded Sex Assigned at Not on file Legal Sex Female 5:53 AM MANAGER OF CASE Gender Identity Not on file Sexual Orientation Not on file documented as of this encounter Plan of Treatment Not on file documented as of this encounter Visit Diagnoses Diagnosis Vaccine for influenza- Primary Need for prophylactic vaccination and inoculation against influenza documented in this encounter Care Teams Hospital Recruiter Relationship Specialty Start Date End Date Cherelle Spicer MD [address] [place] [address] PCP - General Family Practice 12/31/18 documented as of this encounter
--- OUTSIDE RECORDS SUMMARY | 2025-05-05 16:17 | XMS_ITS | Encounter Summary ---
Author Organization [employer] Address [address] [address] Phone Care Team Providers Care Director Of Regional Sales Name Role Phone Reddy Johnson LCSW Primary Care Provider [phone]- [phone] Reason for Visit * Reason Onset Date Comments Appointment 10/10/2022 Encounter Details Date Type Department Care Team (Late st Contact Info) Description 10/10/2022 Telephone [facility] [address] [place] [address] Robin Snell MD no verified address on file Appointment Social History Tobacco Use Types Packs/Day Years Used Date Smoking Tobacco: Former Cigarettes 1984 Smokeless Tobacco: Never Alcohol Use Standard Drinks/Week Comments Never 0 (1 standard drink = 0.6 oz pur e alcohol) Humiliation, Afraid, Rape, and Kick questionnair e Answer Date Recorded Within the last year, have y ou been afraid of your partner or ex-partner? No 10/09/2022 Within the last year, have y ou been humiliated or emotionally abused in other ways by your partner or ex-partner? No Within the last year, have y ou been kicked, hit, slapped, or otherwise physically hurt by your partner or ex-partner? No 10/09/2022 Within the last year, have y ou been raped or forced to have any kind of sexual activity by your partner or ex-partner? No 10/09/2022 Social Connection and Isolation Panel Answer Date Recorded In a typical week, how many times do you talk on the phone with family, friends, or neighbors? Three times a week 10/09/2022 How often do you get togethe r with friends or relatives? Three times a week 10/09/2022 Attends Amish Services Not on file 10/09 Do you belong to any clubs o r organizations such as yazidism groups, unions, fraternal or athletic groups, or school groups? Yes 10/09/2022 How often do you attend meet ings of the clubs or organizations you belong to? More than 4 times per year 10/09/2022 Are you , , di vorced, , never , or living with a partner? 10/09/2022 AUDIT-C Answer Date Recorded Q1: How often do you have a drink containing alcohol? Never 10/09/2022 Q2: How many drinks containi ng alcohol do you have on a typical day when you are drinking? Patient does not drink Q3: How often do you have si x or more drinks on one occasion? Never 10/09/2022 Overall Financial Resource Strain (CARDIA) Answe r Date Recorded How hard is it for you to pa y for the very basics like food, housing, medical care, and heating? Not very hard 10/09/2022 [facility] [place] [facility] Occupat ional Health - Occupational Stress Questionnaire Answer Date Recorded Do you feel stress - tense, restless, nervous, or anxious, or unable to sleep at night because your mind is troubled all the time - these days? Only a little 10/09/2022 Exercise Vital Sign Answer Date Recorde d On average, how many days pe r week do you engage in moderate to strenuous exercise (like a brisk walk)? 2 days Minutes of Exercise per Session Not on file 10/09/2022 Hunger Vital Sign Answer Date Recorded Within the past 12 months, y ou worried that your food would run out before you got the money to buy more. Never true 10/09/19 23 Within the past 12 months, t he food you bought just didn't last and you didn't have money to get more. Never true 10/09/2022 PRAPARE - Transportation Answer Date Re corded In the past 12 months, has l ack of transportation kept you from medical appointments or from getting medications? No 09/19 In the past 12 months, has l ack of transportation kept you from meetings, work, or from getting things needed for daily living? No 10/09/2022 Housing Stability Vital Sign Answer Harsh e Recorded In the last 12 months, was t here a time when you were not able to pay the mortgage or rent on time? No 10/09/2022 Number of Places Lived in the Last Year Not on f ile 10/09/2022 In the last 12 months, was t here a time when you did not have a steady place to sleep or slept in a nursing home (including now)? No 10/09/2022 Comments No Sex and Gender Information Value Date Recorded Sex Assigned at Not on file Legal Sex Female 11:08 AM CDT Gender Identity Not on file Sexual Orientation Not on file COVID-19 Exposure Response Date Recorded In the last 10 days, have yo u been in contact with someone who was confirmed or suspected to have Coronavirus/COVID-19? No / Unsure 10/09/2022 8:11 PM REHAB DEPARTMENT MANAGER documented as of this encounter Miscellaneous Notes * Telephone Encounter - Tanesha Danielle - 10/10/2022 2:45 PM CST States patient need hospital follow up. Please contact patient B DEPARTMENT MANAGER documented in this encounter Plan of Treatment Not on file documented as of this encounter Visit Diagnoses Not on filedocumented in this encounter Additional Health Concerns Infection Onset Date Last Indicated Resolved Time COVID-19 Rule-Out 03/12/2023 03/12/2023 03/12/2023 1:53 PM CDT COVID-19 Rule-Out 03/13/2023 03/13/2023 03/13/2023 9:02 AM CDT documented as of this encounter Care Teams Director Of Regional Sales Relationship Specialty Start Date End Date Reddy Johnson FNP [address] [place] [address] PCP - General Family Medicine 08/20/22 documented as of this encounter
--- OUTSIDE RECORDS SUMMARY | 2025-05-05 16:17 | XMS_ITS | Encounter Summary ---
Author Organization [employer] [facility] Address [address] [place] [address] Care Team Providers Care Airplane Cabin Attendant Name Role Phone Cherelle Spicer MD Primary Care Provider Encounter Details Date Type Department Care Team (Late st Contact Info) Description 06/13/2014 Ancillary Orders charity: water [facility] [address] [place] [phone] Alex So, FLUTE TEACHER [address] [place] [address] Bronchitis (Primary Dx) Social History Tobacco Use Types Packs/Day Years Used Date Smoking Tobacco: Former Cigarettes 0.5 20 0 11/23/1969 - 11/23/1989 Smokeless Tobacco: Never Alcohol Use Standard Drinks/Week Comments No 0 (1 standard drink = 0.6 oz pur e alcohol) Comments No Sex and Gender Information Value Date Recorded Sex Assigned at Not on file Legal Sex Female 5:53 AM MARKET RESEARCH EXECUTIVE Gender Identity Not on file Sexual Orientation Not on file Occupation Industry Job Start Date Job End Date Not on file Not on file Not on file Not on file documented as of this encounter Plan of Treatment Not on file documented as of this encounter Results * XR CHEST PA AND LATERAL (06/13/2014 3:12 PM CDT) Anatomical Region Laterality Modality Chest Computed Radiogr aphy 06/13/2014 3:06 PM CDT Narrative 06/14/2014 8:53 AM CDT PROCEDURE XR CHEST, 2 views, 13 June 2014 COMPARISON Current: PA and lateral chest Prior: PA chest, 05 October 2012 DESCRIPTION Frontal view of the chest shows no infiltrate or atelectasis and the cardiomediastinal silhouette appears normal, except for note of mild aortic tortuosity and atherosclerosis. There is mild hyperinflation. There is a platelike scar of the middle lobe, unchanged. There is unchanged apical pleural thickening and or pulmonary proximal scarring with retraction of the teri. Surgical clips in the right upper quadrant are likely status post cholecystectomy, unchanged. On the lateral view, no infiltrate or spine sign is seen. Costophrenic angles are blunted by hyperinflation posteriorly. IMPRESSION 1. COPD changes 2. scarring in the pulmonary apices, unchanged 3. no acute infiltrate or effusion Procedure Note Andreas Finley MD - 06/14/2014 PROCEDURE XR CHEST, 2 views, 13 June 2014 COMPARISON Current: PA and lateral chest Prior: PA chest, 05 October 2012 DESCRIPTION Frontal view of the chest shows no infiltrate or atelectasis and the cardiomediastinal silhouette appears normal, except for note of mild aortic tortuosity and atherosclerosis. There is mild hyperinflation. There is a platelike scar of the middle lobe, unchanged. There is unchanged apical pleural thickening and or pulmonary proximal scarring with retraction of the teri. Surgical clips in the right upper quadrant are likely status post cholecystectomy, unchanged. On the lateral view, no infiltrate or spine sign is seen. Costophrenic angles are blunted by hyperinflation posteriorly. IMPRESSION 1. COPD changes 2. scarring in the pulmonary apices, unchanged 3. no acute infiltrate or effusion Alex So [facility] ORDERABLES Final Result documented in this encounter Visit Diagnoses Diagnosis Bronchitis- Primary Bronchitis, not specified as acute or chronic Bronchitis Bronchitis, not specified as acute or chronic documented in this encounter Care Teams Airplane Cabin Attendant Relationship Specialty Start Date End Date Cherelle Spicer MD [address] [place] [address] PCP - General Family Practice 12/31/18 documented as of this encounter
--- OUTSIDE RECORDS SUMMARY | 2025-05-05 16:17 | XMS_ITS | Encounter Summary ---
Author Organization [facility] Address [address] [place] [address] Care Team Providers Care Pump Service Supervisor Name Role Phone Cherelle Spicer MD Primary Care Provider Encounter Details Date Type Department Care Team (Latest Contact Info) Description 07/04/2004 Outpatient Historical [facility] [address] [place] [address] Patricia Oreilly, HOTEL FRONT OFFICE MANAGER [address] [place] [phone] URIN TRACT INFECTION NOS (Primary Dx) Social History Tobacco Use Types Packs/Day Years Used Date Smoking Tobacco: Never Assessed Comments Unknown Sex and Gender Information Value Date Recorded Sex Assigned at Not on file Legal Sex Female 5:53 AM SOA ARCHITECT Gender Identity Not on file Sexual Orientation Not on file documented as of this encounter Plan of Treatment Not on file documented as of this encounter Visit Diagnoses Diagnosis Urinary tract infection, site not specified- Primary documented in this encounter Care Teams Pump Service Supervisor Relationship Specialty Start Date End Date Cherelle Spicer MD [address] [place] [address] PCP - General Family Practice 12/31/18 documented as of this encounter
--- OUTSIDE RECORDS SUMMARY | 2025-05-05 16:17 | XMS_ITS | Encounter Summary ---
Author Organization [facility] Address [address] [place] [address] Care Team Providers Care Ultrasound Technol Name Role Phone Cherelle Spicer MD Primary Care Provider Encounter Details Date Type Department Care Team (Latest Contact Info) Description 10/15/1999 Outpatient Historical [facility] Family Medicine[address] [address] Sterling Cavazos MD [address] [phone] Acute bronchitis (Primary Dx) Social History Tobacco Use Types Packs/Day Years Used Date Smoking Tobacco: Never Assessed Comments Unknown Sex and Gender Information Value Date Recorded Sex Assigned at Not on file Legal Sex Female 5:53 AM TRANSFER STATION ATTENDANT Gender Identity Not on file Sexual Orientation Not on file documented as of this encounter Plan of Treatment Not on file documented as of this encounter Visit Diagnoses Diagnosis Acute bronchitis- Primary documented in this encounter Care Teams Ultrasound Technol Relationship Specialty Start Date End Date Cherelle Spicer MD [facility] [place] [address] PCP - General Family Practice 12/31/18 documented as of this encounter
--- OUTSIDE RECORDS SUMMARY | 2025-05-05 16:17 | XMS_ITS | Encounter Summary ---
Author Organization [facility] Address [address] [place] [address] Care Team Providers Care International Student Counselor Name Role Phone Cherelle Spicer MD Primary Care Provider Encounter Details Date Type Department Care Team (Latest Contact Info) Description 07/11/2004 Outpatient Historical [facility] [address] [place] [address] Patricia Oreilly, PARTS ROOM ASSISTANT [address] [place] [address] HYPERLIPIDEMIA NEC/NOS (Primary Dx) Social History Tobacco Use Types Packs/Day Years Used Date Smoking Tobacco: Never Assessed Comments Unknown Sex and Gender Information Value Date Recorded Sex Assigned at Not on file Legal Sex Female 5:53 AM MACHINE FEEDER FLOORPERSON Gender Identity Not on file Sexual Orientation Not on file documented as of this encounter Plan of Treatment Not on file documented as of this encounter Visit Diagnoses Diagnosis Other and unspecified hyperlipidemia- Primary documented in this encounter Care Teams International Student Counselor Relationship Specialty Start Date End Date Cherelle Spicer MD [address] [place] [address] PCP - General Family Practice 12/31/18 documented as of this encounter
--- OUTSIDE RECORDS SUMMARY | 2025-05-05 16:17 | XMS_ITS | Encounter Summary ---
Author Organization [facility] Address [address] [place] [address] Care Team Providers Care Cloud Automation Tester Name Role Phone Cherelle Spicer MD Primary Care Provider Encounter Details Date Type Department Care Team (Latest Contact Info) Description 07/11/2004 Outpatient Historical [facility] [address] [place] [address] Patricia Oreilly, SALES OPERATIONS SPECIALIST [address] [place] [address] Pure hypercholesterolem (Primary Dx); URIN TRACT INFECTION NOS Social History Tobacco Use Types Packs/Day Years Used Date Smoking Tobacco: Never Assessed Comments Unknown Sex and Gender Information Value Date Recorded Sex Assigned at Not on file Legal Sex Female 5:53 AM PUMP TESTER Gender Identity Not on file Sexual Orientation Not on file documented as of this encounter Plan of Treatment Not on file documented as of this encounter Visit Diagnoses Diagnosis Pure hypercholesterolem- Primary Pure hypercholesterolemia Urinary tract infection, site not specified documented in this encounter Care Teams Cloud Automation Tester Relationship Specialty Start Date End Date Cherelle Spicer MD [address] [place] [address] PCP - General Family Practice 12/31/18 documented as of this encounter
--- OUTSIDE RECORDS SUMMARY | 2025-05-05 16:17 | XMS_ITS | Encounter Summary ---
Author Organization [facility] Address [address] [address] Phone Care Team Providers Care Chemical Treatment Operator Name Role Phone Reddy Johnson DOCK ASSOCIATE Primary Care Provider +1- [phone] Reason for Visit * Reason Onset Date Comments Appointment 11/05/2022 Encounter Details Date Type Department Care Team (Late st Contact Info) Description 11/05/2022 Telephone [facility] [address] [phone] Dewey Mchugh MD [address] [phone] Appointment Social History Tobacco Use Types Packs/Day Years Used Date Smoking Tobacco: Former Cigarettes 965 - 1984 Smokeless Tobacco: Never Alcohol Use Standard [...] relatives? Three times a week 10/09/2022 Attends Jewish Services Not on file 10/09 Do you belong to any clubs o r organizations such as scientology groups, unions, fraternal or athletic groups, or [...] care, and heating? Not very hard 10/09/2022 PHQ-2 Answer Date Recorded Patient Health Questionnaire-2 Score 0 10/22/2022 [facility] - Occupational Stress Questionnaire Answer Date Recorded [...] place to sleep or slept in a fpc (including now)? No 10/09/2022 Comments No Sex [...] suspected to have Coronavirus/COVID-19? No / Unsure 11/04/2022 8:45 AM CDT documented as of this encounter Miscellaneous Notes * Telephone Encounter - Ksenia Schumacher - 11/05/2022 10:58 AM CDT APPPT SCHEDULED * Telephone Encounter - Genie Lopez - 11/05/2022 9:54 AM CDT Pt is needing to schedule an appointment documented in this encounter Plan of Treatment Not on file documented as of this encounter Visit Diagnoses Not on filedocumented in this encounter Additional Health Concerns Infection Onset Date Last Indicated Resolved Time COVID-19 Rule-Out 03/12/2023 03/12/2023 03/12/2023 1:53 PM CDT COVID-19 Rule-Out 03/13/2023 03/13/2023 03/13/2023 9:02 AM CDT documented as of this encounter Care Teams Chemical Treatment Operator Relationship Specialty Start Date End Date Reddy Johnson FNP [address] [place] [address] PCP - General Family Medicine 08/20/22 documented as of this encounter
--- OUTSIDE RECORDS SUMMARY | 2025-05-05 16:17 | XMS_ITS | Encounter Summary ---
Author Organization [facility] Address [address] [place] [address] Care Team Providers Care Coin Dealer Name Role Phone Cherelle Spicer MD Primary Care Provider Encounter Details Date Type Department Care Team (Latest Contact Info) Description 11/16/2003 Outpatient Historical [facility] [address] [place] [address] Patricia Oreilly, RESTAURANT SHIFT LEADER [address] [place] [phone] ACUTE URI NOS (Primary Dx) Social History Tobacco Use Types Packs/Day Years Used Date Smoking Tobacco: Never Assessed Comments Unknown Sex and Gender Information Value Date Recorded Sex Assigned at Not on file Legal Sex Female 5:53 AM LEATHER PRODUCTION MACHINE OPERATOR Gender Identity Not on file Sexual Orientation Not on file documented as of this encounter Plan of Treatment Not on file documented as of this encounter Visit Diagnoses Diagnosis Acute upper respiratory infections of unspecified site- Primary documented in this encounter Care Teams Coin Dealer Relationship Specialty Start Date End Date Cherelle Spicer MD [address] [place] [address] PCP - General Family Practice 12/31/18 documented as of this encounter
--- OUTSIDE RECORDS SUMMARY | 2025-05-05 16:17 | XMS_ITS | Encounter Summary ---
Author Organization [facility] Address [address] [place] [address] Care Team Providers Care Chief Station Engineer Name Role Phone Cherelle Spicer MD Primary Care Provider Encounter Details Date Type Department Care Team (Latest Contact Info) Description 09/23/2002 Outpatient Historical [facility] Family Medicine [place] [address] [facility] [address] [place] [phone] Long Briscoe MD SCREENING MAL NEOP-COLON (Primary Dx) Social History Tobacco Use Types Packs/Day Years Used Date Smoking Tobacco: Never Assessed Comments Unknown Sex and Gender Information Value Date Recorded Sex Assigned at Not on file Legal Sex Female 5:53 AM SUPERVISOR CELL ROOM Gender Identity Not on file Sexual Orientation Not on file documented as of this encounter Plan of Treatment Not on file documented as of this encounter Visit Diagnoses Diagnosis Special screening for malignant neoplasms, colon- Primary documented in this encounter Care Teams Chief Station Engineer Relationship Specialty Start Date End Date Cherelle Spicer [place] [address] PCP - General Family Practice 12/31/18 documented as of this encounter
--- OUTSIDE RECORDS SUMMARY | 2025-05-05 16:17 | XMS_ITS | Encounter Summary ---
Author Organization [facility] Address [address] [place] [address] Care Team Providers Care Olive Knocker Name Role Phone Cherelle Spicer MD Primary Care Provider Reason for Referral * Outpatient Services (Routine) - Closed Specialty Diagnoses / Procedures Referred By Chet t Referred To Contact Diagnoses Knee pain OA (osteoarthritis) of knee Procedures CT LOW EXT WO CONTRAST RIGHT Scooter Landeros MD [address] [place] [address] Phone: tel: fax: Referral ID Status Reason Start Date Expiration Date Visits Re quested Visits Authorized [id number] Closed 10/05/2012 11/05/2013 1 1 F DIETITIAN Encounter Details Date Type Department Care Team (Late st Contact Info) Description 10/05/2012 Ancillary Orders [facility] [address] [place] [address] Scooter Landeros MD [address] [place] [address] Knee pain; OA (osteoarthritis) of knee Social History Tobacco Use Types Packs/Day Years Used Date Smoking Tobacco: Never Alcohol Use Standard Drinks/Week Comments No 0 (1 standard drink = 0.6 oz pur e alcohol) Comments Unknown Sex and Gender Information Value Date Recorded Sex Assigned at Not on file Legal Sex Female 5:53 AM CHIEF DIETITIAN Gender Identity Not on file Sexual Orientation Not on file documented as of this encounter Plan of Treatment Not on file documented as of this encounter Results * CT LOW EXT WO CONTRAST RIGHT (10/05/2012 12:09 PM CHIEF DIETITIAN) Anatomical Region Laterality Modality Lower Extremity Computed Tomogra phy 10/05/2012 11:4 7 AM CHIEF DIETITIAN Impressions 10/05/2012 2:38 PM CHIEF DIETITIAN Impression: 1. Tricompartmental degenerative change of the right knee, greatest and moderate to severe within the medial compartment. GO/shahana 1211 PM - uploaded from [employer] - Narrative 10/05/2012 2:38 PM CHIEF DIETITIAN IMPRESSION - see report below. Exam: CT LOW EXT WO CONTRAST RIGHT Date/Time of Exam: Oct 05, 2012 12:09:00 PM Reason For Exam: Pain in joint, lower leg. Technique: CT of the right lower extremity was performed without the administration of intravenous contrast. Comparison: Right knee radiographs 09/17/2012. Findings: Volumetric acquisition of the right lower extremity from the roof of the right acetabulum through the foot was performed for preoperative planning of right knee arthroplasty. Moderate to severe medial compartment joint space narrowing with subchondral cystic change of the medial compartment is noted. There is incidental note of an approximately 1.1 cm in diameter large central osteophyte of the lateral articular facet of the trochlea noted. No acute fracture or dislocation is identified. Small effusion of the suprapatellar pouch is seen. There is incidental note of diverticular change of the imaged sigmoid colon. Procedure Note Alex Hi MD - 10/05/2012 IMPRESSION - see report below. Exam: CT LOW EXT WO CONTRAST RIGHT Date/Time of Exam: Oct 05, 2012 12:09:00 PM Reason For Exam: Pain in joint, lower leg. Technique: CT of the right lower extremity was performed without the administration of intravenous contrast. Comparison: Right knee radiographs 09/17/2012. Findings: Volumetric acquisition of the right lower extremity from the roof of the right acetabulum through the foot was performed for preoperative planning of right knee arthroplasty. Moderate to severe medial compartment joint space narrowing with subchondral cystic change of the medial compartment is noted. There is incidental note of an approximately 1.1 cm in diameter large central osteophyte of the lateral articular facet of the trochlea noted. No acute fracture or dislocation is identified. Small effusion of the suprapatellar pouch is seen. There is incidental note of diverticular change of the imaged sigmoid colon. IMPRESSION Impression: 1. Tricompartmental degenerative change of the right knee, greatest and moderate to severe within the medial compartment. GO/ljmargarette 1211 PM - uploaded from [employer] - us Scooter Landeros MD CT ORDERABLES Final Result documented in this encounter Visit Diagnoses Diagnosis Knee pain Pain in joint, lower leg OA (osteoarthritis) of knee Osteoarthrosis, unspecified whether generalized or localized, lower leg Knee pain Pain in joint, lower leg OA (osteoarthritis) of knee Osteoarthrosis, unspecified whether generalized or localized, lower leg documented in this encounter Care Teams Olive Knocker Relationship Specialty Start Date End Date Cherelle Spicer MD [address] [place] [phone] PCP - General Family Practice 12/31/18 documented as of this encounter
--- OUTSIDE RECORDS SUMMARY | 2025-05-05 16:17 | XMS_ITS | Encounter Summary ---
Author Organization [facility] Address [address] [place] [address] Care Team Providers Care Data Security Administrator Name Role Phone Cherelle Spicer MD Primary Care Provider Encounter Details Date Type Department Care Team (Latest Contact Info) Description 09/15/2002 Outpatient Historical [facility] [place] [address] [facility] [address] [place] [address] Vera Del Real MD NO ADDRESS ON FILE IRRITABLE COLON (Primary Dx) Social History Tobacco Use Types Packs/Day Years Used Date Smoking Tobacco: Never Assessed Comments Unknown Sex and Gender Information Value Date Recorded Sex Assigned at Not on file Legal Sex Female 5:53 AM RECONCILIATION COORDINATOR Gender Identity Not on file Sexual Orientation Not on file documented as of this encounter Plan of Treatment Not on file documented as of this encounter Visit Diagnoses Diagnosis Irritable bowel syndrome- Primary documented in this encounter Care Teams Data Security Administrator Relationship Specialty Start Date End Date Cherelle Spicer MD [address] [place] [address] PCP - General Family Practice 12/31/18 documented as of this encounter
--- OUTSIDE RECORDS SUMMARY | 2025-05-05 16:17 | XMS_ITS | Encounter Summary ---
Author Organization [facility] Address [address] [place] [address] Care Team Providers Care Irrigation Equipment Remover Name Role Phone Cherelle Spicer MD Primary Care Provider Encounter Details Date Type Department Care Team (Latest Contact Info) Description 01/09/2004 Outpatient Historical [facility] [address] [place] [address] Patricia Oreilly, MINE DEPUTY [address] [place] [phone] SCREENING MAL NEOP-BREAST,UNSPEC (Primary Dx) Social History Tobacco Use Types Packs/Day Years Used Date Smoking Tobacco: Never Assessed Comments Unknown Sex and Gender Information Value Date Recorded Sex Assigned at Not on file 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
--- OUTSIDE RECORDS SUMMARY | 2025-05-05 16:17 | XMS_ITS | Clinical Summary ---
Author Organization [facility] Address [address] [facility] Attn: Epic Prelude ADT [place] [address] Care Team Providers Care Informatics Application Analyst Name Role Phone Cheerlle Spicer MD Primary Care Provider Allergies Active Allergy Reactions Criticality Noted Date Comments Sulfa (Sulfonamide Antibiotics) Rash Low 08/20 Active Problems Problem Noted Date Diagnosed Date Right TKA- DePuy Trumatch 11/25/2012 11/25/2012 OA (osteoarthritis) of knee 09/17/2012 Knee pain 09/17/2012 Immunizations Immunization Administration Dates Next Due (PNEUMOVAX 23)(50 YRS UP) PN EUMOCOCCAL POLYSACCHARIDE (PPV23) 0.5 ML, IM 05/15/2012 Influenza Seasonal Unspecified Formulation IM ,05/30/2004 Family History Medical History Relation Name Comments Heart Disease Mother Ovarian Cancer Mother Cancer Neg Hx Colon Cancer Neg Hx Diabetes Neg Hx Relation Name Status Comments Mother Social History Tobacco Use Types Packs/Day Years Used Date Smoking Tobacco: Former Cigarettes Q uit: 11/23/1989 Smokeless Tobacco: Never Alcohol Use Standard Drinks/Week Comments No 0 (1 standard drink = 0.6 oz pur e alcohol) Comments Unknown Sex and Gender Information Value Date Recorded Sex Assigned at Not on file 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 Gender Identity Not on file Sexual Orientation Not on file Last Filed Vital Signs Vital Sign Reading Time Taken Comments Blood Pressure 120/80 12/31/2018 10:28 AM CDT Pulse 84 12/31/2018 10:28 AM CDT Temperature 36.7 C (98 F) 12/31/2018 10:28 AM CDT Respiratory Rate 20 12/31/2018 10:28 AM CDT Oxygen Saturation - - Inhaled Oxygen Concentration - - Weight 75.3 kg (166 lb) 12/31/2018 10:28 AM CDT Height 157.5 cm (5' 2 ) 12/31/2018 10:28 AM CDT Body Mass Index 30.36 12/31/2018 10:28 AM CDT Plan of Treatment Health Maintenance Due Date Last Done Comments DTAP/TDAP/TD VACCINES (1 - Tdap) 1959 Traditional Medicare (ACO) A nnual Wellness Visit 1959 ZOSTER VACCINE (1 of 2) 1988 OSTEOPOROSIS SCREENING 11/11/2003 RSV VACCINE (60+ or ) (1 - 1-dose 75+ series) 2013 INFLUENZA VACCINE (#1) 2025 2, 05/08/2021, 05/15/2019, Additional history exists PNEUMOCOCCAL VACCINE 50+ YEARS Completed 06/15/2015 , 05/15/2012 Medical Devices Implanted Type Area Industrial Maintenance Manager Device Identifier Shelf Expiration Date Model / Serial / Lot Cardale Sut Bio Swvlck 4.75x24.5mm Ar-2324bcm - [id number] Implanted:Qty : 1 on 05/28/2013 Cardale Right: Shoulder [employer] 02/14/2015 AR-2324BC M / / [id number] Cardale Sut Crkscrw Biocmpst 5.5mm Ar-1927bcf - [id number] Implanted:Qty : 1 on 05/28/2013 Cardale Right: Shoulder [employer] 02/14/2015 AR-1927BC F / / [id number] Cement Palacos R+G 71-5236-092-0 1 - [id number] Implanted:Qty : 1 on 11/25/2012 Cement Right: Knee [employer] 04/18/2016 00-1113-1 40- / / [id number] Comp Fem Sigma Ps Float Phlebotomist Sz3 1960-50-300 - [id number] Implanted:Qty : 1 on 11/25/2012 Knee Right: Knee J&J- [employer]Y OR[employer] 06/18/2021 1960-50-3 00 / / [id number] Comp Tib Sigma Cocr Sz3 1581-30-000 - [id number] Implanted:Qty : 1 on 11/25/2012 Knee Right: Knee J&J- [employer] 12/17/2019 1581-30-0 00 / / [id number] Ins Tib Sigma Fbs Xlk Sz3 1581-23-112 - Sn/A Implanted:Qty : 1 on 11/25/2012 Knee Right: Knee J[employer]J- [employer] 03/18/2015 1581-23-1 12 / N/A / [id number] Patella Dome 3peg 38mm 96-0102 - [id number] Implanted:Qty : 1 on 11/25/2012 Knee Right: Knee [employer]J- [employer] 10/16/2016 96-0102 / / [id number] Explanted Type Area Industrial Maintenance Manager Device Identifier Shelf Expiration Date Model / Serial / Lot Trumatch Guide Pin Explanted:Qty: 2 on 11/25/2012 Knee Right: Knee 01/16/2013 [id number] / / [id number] Description:not an implant o nly a guide block Insurance MEDICARE PART A AND B [facility] Care Teams Informatics Application Analyst Relationship Specialty Start Date End Date Cherelle Spicer MD [address] [phone] PCP - General Family Practice 12/31/18
--- OUTSIDE RECORDS SUMMARY | 2025-05-05 16:17 | XMS_ITS | Clinical Summary ---
Author Organization [facility] Address [address] [place] [address] Care Team Providers Care Sports Apparel Internship Name Role Phone Cherelle Spicer MD Primary Care Provider Allergies Active Allergy Reactions Criticality Noted Date Comments Sulfa (Sulfonamide Antibiotics) Rash Low 08/20 Medications omeprazole (PRILOSEC) 20 mg Oral CpDR Take 20 mg by mouth daily. Active losartan (COZAAR) 100 mg Oral tablet Take 100 mg by mouth daily. Active LOVASTATIN ORAL Take 25 mg by mouth. Active CALCIUM CARBONATE/VITAMI N D3 (CALCIUM + D ORAL) Take by mouth. Active multivitamin (DAILY MULTI-VITAMIN) Oral tablet Take 1 Tab by mouth daily. Active aspirin (GUS) 325 mg Oral tablet Take 1 Tab by mouth every 12 hours. 90 Tab 1 11/28/2012 Active metoprolol succinate ER 24 hour (TOPROL-XL) 25 mg Oral tablet Take 25 mg by mouth 2 times daily. Active ALBUTEROL INHALATION Take by inhalation. Active oxyCODONE-acetam inophen (PERCOCET) 5-325 mg Oral tablet Take 1 Tab by mouth every 4 hours as needed for Pain, Moderate. 60 Tab 0 05/27/2013 Active naproxen (NAPROSYN) 500 mg Oral tablet Take 1 Tab by mouth 2 times daily with meals. 60 Tab 1 05/27/2013 Active ADVAIR DISKUS 250-50 mcg/dose Disk with Device 250 Puffs. 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 Gender Identity Not on file Sexual Orientation Not on file Occupation Industry Job Start Date Job End Date Not on file Not on file Not on file Not on file Last Filed Vital Signs Vital Sign Reading Time Taken Comments Blood Pressure 120/80 12/31/2018 10:28 AM CDT Pulse 84 12/31/2018 10:28 AM CDT Temperature 36.7 C (98 F) 12/31/2018 10:28 AM CDT Respiratory Rate 20 12/31/2018 10:28 AM CDT Oxygen Saturation 97% 12/31/2018 10:28 AM CDT Inhaled Oxygen Concentration - - Weight 75.3 kg (166 lb) 12/31/2018 10:28 AM CDT Height 157.5 cm (5' 2 ) 12/31/2018 10:28 AM CDT Body Mass Index 30.36 12/31/2018 10:28 AM CDT Plan of Treatment Health Maintenance Due Date Last Done Comments DTAP/TDAP/TD VACCINES (1 - Tdap) 1959 Traditional Medicare (O) A nnual Wellness Visit 1959 ZOSTER VACCINE (1 of 2) 1988 OSTEOPOROSIS SCREENING 11/11/2003 PNEUMOCOCCAL VACCINE 50+ YEA RS (2 of 2 - PCV) 05/15/2013 05/15/2012 RSV VACCINE (60+ or ) (1 - 1-dose 75+ series) 2013 INFLUENZA VACCINE (#1) 2025 05/15/2012, 2003 Medical Devices Implanted Type Area Drilling Inspector Device Identifier Shelf Expiration Date Model / Serial / Lot Rozel Jemma Crkscrw Biocmpst 5.5mm Ar-1927bcf - [id number] Implanted:Qty: 1 on 05/28/2013 at [facility] Rozel Right: Shoulder [employer] 02/14/2015 AR-1927BC F / / [id number] Rozel Sut Bio Swvlck 4.75x24.5mm Ar-2324bcm - [id number] Implanted:Qty: 1 on 05/28/2013 at [facility] Rozel Right: Shoulder [employer] 02/14/2015 AR-2324BC M / / [id number] Cement Palacos R+G 32-9610-257-01 - [id number] Implanted:Qty: 1 on 11/25/2012 at [facility] Cement Right: Knee [employer] 04/18/2016 00-1113-1 40- / / [id number] Patella Dome 3peg 38mm 96-0102 - [id number] Implanted:Qty: 1 on 11/25/2012 at [facility] Knee Right: Knee J[employer]J- [employer] 10/16/2016 96-0102 / / [id number] Comp Tib Sigma Cocr Sz3 1581-30-000 - [id number] Implanted:Qty: 1 on 11/25/2012 at [facility] Knee Right: Knee J[employer]J- [employer] 12/17/20191580-30-0 00 / / [id number] Comp Fem Sigma Ps Outer Diameter Grinder Sz3 1960-50-300 - [id number] Implanted:Qty: 1 on 11/25/2012 at [facility] Knee Right: Knee J[employer]J- [employer] 06/18/20211959-50-3 00 / / [id number] Ins Tib Sigma Fbs Xlk Sz3 1581-23-112 - Sn/A Implanted:Qty: 1 on 11/25/2012 at [facility] Knee Right: Knee J[employer] 03/18/20151580-23-1 12 / N/A / [id number] Explanted Type Area Drilling Inspector Device Identifier Shelf Expiration Date Model / Serial / Lot Trumatch Guide Pin Explanted:Qty: 2 on 11/25/2012 at [facility] Knee Right: Knee DEPUY ORTHO 01/16/2013 [id number] / / [id number] Description:not an implant o nly a guide block Insurance MEDICARE PART A AND B [facility] Advance Directives For more information, please contact: [phone] * Full Code (Latest Code Status on File) Date Activated Date Inactivated Comments 05/28/2013 8:38 AM 05/28/2013 2:15 PM * Full Code Date Activated Date Inactivated Comments 11/25/2012 2:58 PM 11/28/2012 2:06 PM * Full Code Date Activated Date Inactivated Comments 11/25/2012 9:31 AM 11/25/2012 1:21 PM * Full Code Date Activated Date Inactivated Comments 11/25/2012 7:00 AM 11/25/2012 9:31 AM Care Teams Sports Apparel Internship Relationship Specialty Start Date End Date Cherelle Spicer MD [address] [place] [phone] PCP - General Family Practice 12/31/18
--- OUTSIDE RECORDS SUMMARY | 2025-05-05 16:17 | XMS_ITS | Encounter Summary ---
Author Organization [facility] Address [address] [place] [address] Care Team Providers Care Radio Station Engineer Name Role Phone Cherelle Spicer MD Primary Care Provider Encounter Details Date Type Department Care Team (Latest Contact Info) Description 05/16/2004 Outpatient Historical [facility] [address] [place] [address] Patricia Oreilly, GARDEN EQUIPMENT MECHANIC [address] [place] [address] ACUTE URI NOS (Primary Dx) Social History Tobacco Use Types Packs/Day Years Used Date Smoking Tobacco: Never Assessed Comments Unknown Sex and Gender Information Value Date Recorded Sex Assigned at Not on file 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
--- OUTSIDE RECORDS SUMMARY | 2025-05-05 16:17 | XMS_ITS | Encounter Summary ---
Author Organization [facility] Address [address] [place] [address] Care Team Providers Care Psychiatric Rn Name Role Phone Cherelle Spicer MD Primary Care Provider [phone] Encounter Details Date Type Department Care Team (Latest Contact Info) Description 11/01/2002 Outpatient Historical [facility] [address] [place] [address] Alessio Hough MD [address] [phone] DERMATITIS OTHER NEC (Primary Dx) Social History Tobacco Use Types Packs/Day Years Used Date Smoking Tobacco: Never Assessed Comments Unknown Sex and Gender Information Value Date Recorded Sex Assigned at Not on file 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
--- OUTSIDE RECORDS SUMMARY | 2025-05-05 16:17 | XMS_ITS | Encounter Summary ---
Author Organization [facility] Address [address] [place] [address] Care Team Providers Care Rubber Printing Machine Operator Name Role Phone Cherelle Spicer MD Primary Care Provider [phone] Encounter Details Date Type Department Care Team (Latest Contact Info) Description 01/23/2000 Outpatient Historical [facility] [phone] Sterling Cavazos MD [address] [address] Polymyalgia rheumatica (Primary Dx); Other malaise and fatigue; Cough; Nonspecific (abnormal) findings on radiological and other examination of lung field Social History Tobacco Use Types Packs/Day Years Used Date Smoking Tobacco: Never Assessed Comments Unknown Sex and Gender Information Value Date Recorded Sex Assigned at Not on file 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
--- OUTSIDE RECORDS SUMMARY | 2025-05-05 16:17 | XMS_ITS | Encounter Summary ---
Author Organization [facility] Address [address] [address] Phone Care Team Providers Care Ledger Clerk Name Role Phone Reddy Johnsno AED TRAINER Primary Care Provider [phone] Reason for Visit * Reason Onset Date Comments Need to reschedule surgery 01/06/2023 Encounter Details Date Type Department Care Team (Late st Contact Info) Description 01/06/2023 Telephone [facility] [address] [place] [address] Gerardo Villegas MD [address] [address] Need to reschedule surgery Social History Tobacco Use Types Packs/Day Years Used Date Smoking Tobacco: Former Cigarettes 1 06 09 965 - 1984 Smokeless Tobacco: Never Alcohol [...] relatives? Three times a week 10/09/2022 Attends [employer] Not on file 10/09 Do you belong to any clubs o r organizations such as protestant groups, unions, fraternal or athletic groups, or [...] Date Recorded Patient Health Questionnaire-2 Score 0 11/21/2022 [facility] - Occupational Stress Questionnaire Answer Date [...] place to sleep or slept in a chcf (including now)? No 10/09/2022 Comments No Sex and Gender Information Value Date Recorded Sex Assigned at Not on file Legal Sex Female 11:08 AM CDT Gender Identity Not on file Sexual Orientation Not on file documented as of this encounter Miscellaneous Notes * Telephone Encounter - JOSLYN Santiago - 01/07/2023 1:42 PM CDT Entered in Error, patient does not see a casting machine operator helper. * Telephone Encounter - JOSLYN Santiago - 01/07/2023 8:15 AM CDT Called patient on 01.06.2023 and we discussed surgery being on March 10 since that date was saved for her. Will be getting ahold of her PCP and Diesel Dragline Operator to get clearance. * Telephone Encounter - Yenny Anna - 01/06/2023 9:01 AM CDT Please call pt to re-schedule surgery she had cancelled previously, thanks! documented in this encounter Plan of Treatment Not on file documented as of this encounter Visit Diagnoses Not on filedocumented in this encounter Additional Health Concerns Infection Onset Date Last Indicated Resolved Time COVID-19 Rule-Out 03/12/2023 03/12/2023 03/12/2023 1:53 PM CDT COVID-19 Rule-Out 03/13/2023 03/13/2023 03/13/2023 9:02 AM CDT documented as of this encounter Care Teams Ledger Clerk Relationship Specialty Start Date End Date Reddy Johnson FNP [address] [place] [address] PCP - General Family Medicine 08/20/22 documented as of this encounter
--- OUTSIDE RECORDS SUMMARY | 2025-05-05 16:17 | XMS_ITS | Encounter Summary ---
Author Organization [facility] Address [address] [place] [address] Care Team Providers Care Dog Pound Attendant Name Role Phone Cherelle Spicer MD Primary Care Provider Encounter Details Date Type Department Care Team (Latest Contact Info) Description 10/03/[address] 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
--- NOTE | 2025-05-05 16:26 | CTR_ITS ---
PROCEDURE INFORMATION: Exam: CT Head Without Contrast Exam date and time: 05/05/2025 6:21 PM Age: 84 years old Clinical indication: Injury or trauma; Fall; Blunt trauma (contusions or hematomas); Additional info: Fall with loc and contusion TECHNIQUE: Imaging protocol: Computed tomography of the head without contrast. Radiation optimization: All CT scans at this facility use at least one of these dose optimization techniques: automated exposure control; mA and/or kV adjustment per patient size (includes targeted exams where dose is matched to clinical indication); or iterative reconstruction. COMPARISON: CT cervical spin wo con* [id number] 05/05/2025 6:21 PM RADIATION DOSE METRICS: Total DLP (mGy-cm): 1226.8 FINDINGS: Brain: [id number] atrophic changes. Prominent areas of decreased periventricular and subcortical white matter density consistent with chronic ischemic change. Normal bentley-white matter differentiation. No evidence of acute intracranial hemorrhage or mass. Calcification cavernous portions of the internal carotid arteries. Vertebral artery calcification. Falx ossification and dural calcification. Cerebral ventricles: Proportional to appearance of the sulci. Paranasal sinuses: Visualized sinuses are unremarkable. No fluid levels. Mild hypertrophy of the inferior middle nasal turbinates. Slight deviation nasal septum to the right with small spur on the right. Mastoid air cells: Visualized mastoid air cells are well aerated. Bones: Unremarkable. No acute fracture. Soft tissues: Unremarkable. CT/CT head wo con* [id number] IMPRESSION: 1. Atrophic changes, chronic ischemic changes without acute appearing intracranial abnormality.
--- NOTE | 2025-05-05 16:26 | CTR_ITS ---
PROCEDURE INFORMATION: Exam: CT Abdomen And Pelvis With Contrast Exam date and time: 05/05/2025 6:26 PM Age: 84 years old Clinical indication: Abdominal pain; Generalized TECHNIQUE: Imaging protocol: Computed tomography of the abdomen and pelvis with contrast. Radiation optimization: All CT scans at this facility use at least one of these dose optimization techniques: automated exposure control; mA and/or kV adjustment per patient size (includes targeted exams where dose is matched to clinical indication); or iterative reconstruction. Contrast material: OMNIPAQUE 350; Contrast volume: 100 ml; Contrast route: INTRAVENOUS (IV); COMPARISON: CR XR hip RT 2-3V wo/w pel* [id number] 12/01/2024 9:35 AM RADIATION DOSE METRICS: Total DLP (mGy-cm): 821.05 FINDINGS: Liver: Normal. No mass. Gallbladder and biliary ducts: Surgical clips in the gallbladder fossa consistent with cholecystectomy. Dilatation of the intra-and extrahepatic biliary tree which can be normal following cholecystectomy. Pancreas: Normal. No ductal dilation. Spleen: Normal. No splenomegaly. Adrenal glands: Normal. No mass. Kidneys and ureters: Mild left hydronephrosis without definite ureteral stone. Stomach and bowel: Mild bowel wall thickening in the rectosigmoid colon consistent with mild infectious colitis versus inflammatory bowel autoimmune colitis. Moderate to severe colonic diverticulosis. Appendix: No evidence of appendicitis. Intraperitoneal space: Unremarkable. No free air. No significant fluid collection. Vasculature: Calcification of the abdominal aorta and/or iliac arteries consistent with atherosclerotic vessel disease. One or more calcified pelvic phleboliths. Lymph nodes: Unremarkable. No enlarged lymph nodes. Urinary bladder: Unremarkable as visualized. Reproductive: Status post hysterectomy. Bones/joints: Levoscoliosis. Mild thoracic spondylosis. Soft tissues: Unremarkable. CT/CT abdomen pelvis w con* [id number] IMPRESSION: 1. Dilatation of the intra-and extrahepatic biliary tree which can be normal following cholecystectomy. 2. Mild bowel wall thickening in the rectosigmoid colon consistent with mild infectious colitis versus inflammatory bowel autoimmune colitis. 3. Mild left hydronephrosis without definite ureteral stone.
--- NOTE | 2025-05-05 16:26 | ECG_ITS ---
[facility]: 2025-[facility]-05 Pat Name: Casi Live Department: Room: Gender: Female Brick Wheeler: : 1940 Requested By: Franny Delong Order Number: [id number] Sabina MD: Yrn Liang M.D. Measurements Intervals [place] Rate: 54 P: 67 NV: 153 QRS: -2 QRSD: 82 T: 42 QT: 419 QTc: 397 Interpretive Statements SINUS BRADYCARDIA Compared to ECG 01/21/2024 15:12:59 Myocardial infarct finding no longer present Electronically Signed On 05-07-2025 13:10:13 CDT by Yrn Liang M.D. [email or web address] [id number]
--- NOTE | 2025-05-05 16:27 | CTR_ITS ---
PROCEDURE INFORMATION: Exam: CT Cervical Spine Without Contrast Exam date and time: 05/05/2025 6:21 PM Age: 84 years old Clinical indication: Injury or trauma; Fall; Blunt trauma; Additional info: Fall with loc and contusion TECHNIQUE: Imaging protocol: Computed tomography of the cervical spine without contrast. Radiation optimization: All CT scans at this facility use at least one of these dose optimization techniques: automated exposure control; mA and/or kV adjustment per patient size (includes targeted exams where dose is matched to clinical indication); or iterative reconstruction. COMPARISON: CT head wo con* [id number] 05/05/2025 6:21 PM RADIATION DOSE METRICS: Total DLP (mGy-cm): 240.9 FINDINGS: Bones: Degenerative changes, possibly old posttraumatic changes between the anterior arch of C1 and odontoid process of C2. Marked narrowing of the C5-C6 disc space with endplate irregularity, subcortical cystic change, large anterior and posterior osteophytes. Mild retrolisthesis of C5 with respect to milder degenerative changes at other disc space levels. Marked degenerative changes cervical facet joint. Bilateral ankylosis joints C2-C3 facet joints. Foraminal narrowing levels. Narrowing AP diameter spinal canal C5-C6 measuring 2 mm AP diameter. No high-grade central canal stenosis. No definite acute appearing bony abnormality Lungs: Irregular pleural-parenchymal opacities posteriorly in the upper lobes. This may be scarring. Maybe infectious. Possible 6.1 mm nodule left upper lobe. PA and lateral chest x-ray recommended. Soft tissues: Atherosclerosis. No masses or significant adenopathy. CT/CT cervical spin wo con* [id number] IMPRESSION: 1. No acute appearing bony abnormality evident. 2. Ankylosis C2-C3 facet joints bilaterally. 3. Degenerative changes most marked at C5-C6 disc space. 4. Mild retrolisthesis of C5 with respect C6. 5. Foraminal narrowing multiple levels. No spinal stenosis. 6. Irregular pleural-parenchymal opacities apices possibly scarring. Can not rule out active process. No previous studies for comparison. PA and lateral chest suggested.
--- NOTE | 2025-05-05 16:31 | ED_ITS ---
HPI - Syncope 2 General: Chief Complaint: Syncope Stated Complaint: SYNCOPAL Time Seen by Provider: 05/05/25 16:16 History of Present Illness: Patient is 84-year-old female with history of HTN, HLD, presents to ED with unwitnessed syncope. Patient stated she had a few seconds of LOC. Preceding symptoms were dizziness. This was during elevation. She believes that she hit the back of her head without laceration. Denies any aspirin, Plavix, anticoagulation, however is chronically on ibuprofen. She has both ibuprofen and Celebrex in her bag of medications at bedside. She has taken all of her antihypertensives as directed today. At bedside her initial blood pressure was 153/68, as I sat patient up to wait 30 seconds to check sitting blood pressure it was down to 138/66. This has happened before patient states with the waiting sacral nerve ablation due to back pain. She stated she is tripped at that time, and did not have lightheadedness, and dizziness. Associated symptoms: Reports vertigo; Deny abdominal pain, chest pain, fever(s) or nausea Related Data Home Medications ?Medication ?Instructions ?Recorded ?Confirmed cetirizine 10 mg tablet 5 mg PO DAILY PRN Allergy Sy mptoms 12/30/19 04/27/25 magnesium oxide 400 mg (241.3 mg 400 mg PO DAILY 12/2904/27/25 magnesium) tablet aspirin 325 mg tablet 81 mg PO DAILY 07/02/2304/18 Previous Rx's ?Medication ?Instructions ?Recorded rosuvastatin 20 mg tablet 20 mg PO DAILY #90 tabs 06/18 01/07 carvedilol 12.5 mg tablet See Rx Instructions .Route 0 01/31/25 .COMPLEX #180 tabs Myrbetriq 50 mg tablet,extended See Rx Instructions .R oute 02/21/25 release (mirabegron) .COMPLEX #30 tabs topiramate 25 mg tablet (Topamax) 25 mg PO BID #60 tab s 02/24/25 losartan 50 mg tablet 50 mg PO DAILY #90 tabs 03/19 01/09 amlodipine 10 mg tablet See Rx Instructions .Route 0 04/14/25 .COMPLEX #90 tabs ibuprofen 800 mg tablet 800 mg PO BID PRN pain #60 t abs 04/27/25 lidocaine 5 % topical ointment 1 applic topical DAILY PRN pain 04/27/25 #50 grams pantoprazole 40 mg tablet,delayed 40 mg PO DAILY 30 da ys #30 tabs 04/27/25 release (Protonix) prednisone 20 mg tablet 20 mg PO BID 7 days #14 tabs 04/27/25 ciprofloxacin HCl 500 mg tablet 500 mg PO Q12H #20 tab s 05/05/25 metronidazole 500 mg tablet 500 mg PO BID 10 days #20 tabs 05/05/25 ondansetron 4 mg disintegrating 4 mg PO Q8H PRN nausea and 05/05/25 tablet vomiting 4 days #14 tabs Allergies Allergy/AdvReac Type Severity Reaction Status Date / Time fluticasone (From Advair Allergy Unknown unknown Verified 04/27/25 14:53 Diskus) salmeterol (From Advair Allergy Unknown unknown Verified 04/27/25 14:53 Diskus) Sulfa (Sulfonamide Allergy Unknown unknown Verified 04/27/25 14:53 Antibiotics) Review of Systems 2 General: Reports: 10 or more systems reviewed and unremarkable except in HPI and below Const: Denies: fever(s), chills or body aches Card: Denies: chest pain or dyspnea on exertion Resp: Denies: dyspnea, productive cough or wheezing GI: Denies: abdominal pain, nausea or vomiting Musc: Reports: back pain (Chronic), joint pain, joint stiffness and muscle cramps (Ongoing); Denies: neck pain, extremity pain, extremity swelling, joint swelling or joint redness Skin/Breast: Denies: changes in skin color or dry skin Neuro: Reports: dizziness, vertigo and other (Syncope with LOC); Denies: numbness in extremities, weakness in extremities or Slurred speech present Psych: Denies: anxiety or depression Brett/Lymph: Denies: easy bruising or easy bleeding PFSH ED 2 PFSH: Medical History (Updated 05/05/25 @ 19:56 by ROS Boykin) Atypical chest pain The EKG from 12/30/2019 revealed sinus rhythm with a normal ST-T's. Normal TN interval. Normal QRS duration. Normal axis. SOB (shortness of breath) Pt has a history of smoking . Pt had sleep apnea ASHD (arteriosclerotic heart disease) Hypertension OK was done a month ago Hyperlipidemia Surgical History H/O midurethral sling procedure (~10/05/24) Performed by Dr. Eubanks at [facility] for mixed incontinence. Hx of cholecystectomy H/O: hysterectomy History of appendectomy History of intestinal surgery Family History Mother Cancer Ovarian cancer Brother Lung disease Cancer Heart disease Hypertension Other Congestive heart failure (CHF) Denies family history of Prostate cancer Diabetes CAD (coronary artery disease) Clotting disorder Dementia Hyperlipidemia Chronic kidney disease (CKD) Breast cancer Suicide Anesthesia complication Bleeding disorder Uterine cancer Thyroid disease Stroke Social History Smoking and tobacco/nicotine status: never used tobacco/nicotine Alcohol intake: never Substance/Drug Use: never Physical Exam 2 Const: COMMON NORMALS: no acute distress, average body habitus, patient oriented x3, no limitations, healthy appearing, alert and well nourished HENMT: COMMON NORMALS: normocephalic, atraumatic and hearing grossly normal bilaterally HEAD & SCALP: normocephalic and atraumatic Neck/C-Spine: COMMON NORMALS: full ROM, no lymphadenopathy, supple and no meningeal signs Lymph: LYMPHATIC: no lymphadenopathy noted Chest: COMMONS NORMALS: normal inspection of the chest Resp: COMMON NORMALS: normal respiratory effort, No retractions and clear to auscultation bilaterally AUSCULTATION: clear to auscultation bilaterally Cardio: COMMON NORMALS: regular rate and regular rhythm RATE: regular rate RHYTHM: regular rhythm GI: COMMON NORMALS: Normal to inspection, nondistended, normoactive bowel sounds present, Soft to palpation, non-tender and No hepatosplenomegaly present PALPATION: Yes Soft to palpation and Yes No hepatosplenomegaly present : COMMON NORMALS: Yes no CVA tenderness BLADDER/KIDNEY EXAM: Yes no CVA tenderness Back/Pelvis: COMMON NORMALS: no CVA tenderness Extremity: COMMON NORMALS: normal to inspection, full ROM and capillary refill normal Neuro: BRIT COMA SCALE: document GCS findings COMMON NORMALS: patient oriented x3, CN's II-XII intact bilaterally and moves all extremities S ENSORIUM/ORIENTATION: Yes alert MENINGEAL SIGNS: Yes no meningeal signs Psych: COMMON NORMALS: mental status grossly normal, Normal thought process present, cooperative and normal affect THOUGHT PROCESS: Normal thought process present Course 2 Vital Signs: Vital signs: Vital Signs Temperature 98.3 F 05/05/25 16:15 Pulse Rate 58 L 05/05/25 20:07 Respiratory Rate 16 05/05/25 20:07 Blood Pressure 127/58 05/05/25 20:07 Pulse Oximetry 95 05/05/25 20:07 Oxygen Delivery Me thod Room Air 05/05/25 18:02 MDM - Syncope Medical Decision Making Patient has grossly abnormal orthostatic vital signs. This appears to be the underlying cause. Will encourage timed drinking intake and 64 ounces/a day of noncaffeinated beverages which appear to be the underlying cause of syncope. She had a heart rate consistently in the mid 50s, and I did consider a Holter monitor, however there was no change in this during her stay, and orthostatic vital signs were grossly abnormal. She improved after IV fluids. Suspect the mild leukocytosis without bandemia is associated with stress demargination. Medical Records I reviewed the patient's medical records. Lab Data I reviewed the patient's lab results. 05/05/25 16:54 05/05/25 16:54 Radiology Impressions Abdomen/Pelvis CT 05/05/25 16:26 IMPRESSION: 1. Dilatation of the intra-and extrahepatic biliary tree which can be normal following cholecystectomy. 2. Mild bowel wall thickening in the rectosigmoid colon consistent with mild infectious colitis versus inflammatory bowel autoimmune colitis. 3. Mild left hydronephrosis without definite ureteral stone. Head CT 05/05/25 16:26 IMPRESSION: 1. Atrophic changes, chronic ischemic changes without acute appearing intracranial abnormality. Cervical Spine CT 05/05/25 16:27 IMPRESSION: 1. No acute appearing bony abnormality evident. 2. Ankylosis C2-C3 facet joints bilaterally. 3. Degenerative changes most marked at C5-C6 disc space. 4. Mild retrolisthesis of C5 with respect C6. 5. Foraminal narrowing multiple levels. No spinal stenosis. 6. Irregular pleural-parenchymal opacities apices possibly scarring. Can not rule out active process. No previous studies for comparison. PA and lateral chest suggested. Laboratory Results WBC 12.11 10^3/uL (3.29-11.43) H 05/05/25 16:54 RBC 4.38 10^6/uL (3.85-5.65) 05/05/25 16:54 Hgb 12.90 g/dL (11.27-16.99) 05/05/25 16:54 Hct 39.2 % (36-47) 05/05/25 16:54 MCV 89.5 fl (85-98) 05/05/25 16:54 MCH 29.5 pg (27-33) 05/05/25 16:54 MCHC 32.9 g/dL (30-55) 05/05/25 16:54 RDW 11.9 % (12.1-15.1) L 05/05/25 16:54 Plt Count 276 10^3/cmm (157-399) 05/05/25 16:54 MPV 9.9 fL (7.4-10.4) 05/05/25 16:54 Neut % (Auto) 80.6 % 05/05/25 16:54 Lymph % (Auto) 8.3 % 05/05/25 16:54 [place] % (Auto) 9.4 % 05/05/25 16:54 Eos % (Auto) 0.9 % 05/05/25 16:54 Baso % (Auto) 0.1 % 05/05/25 16:54 Neut # (Auto) 9.76 10^3/uL (1.8-7.7) H 05/05/25 16:54 Lymph # (Auto) 1.0 10^3/uL (0.8-4.8) 05/05/25 16:54 [place] # (Auto) 1.1 10^3/uL (0.2-0.9) H 05/05/25 16:54 Eos # (Auto) 0.1 10^3/uL (0.0-0.8) 05/05/25 16:54 Baso # (Auto) 0.0 10^3/uL (0.0-0.1) 05/05/25 16:54 Nucleated RBC % (auto) 0 % 05/05/25 16:54 Nucleated RBCs # 0.0 /100WBC 05/05/25 16:54 Sodium 141 mmol/L (136-145) 05/05/25 16:54 Potassium 3.6 mmol/L (3.5-5.1) 05/05/25 16:54 Chloride 105 mmol/L (98-107) 05/05/25 16:54 Carbon Dioxide 26 mmol/L (22-29) 05/05/25 16:54 Anion Gap 13.6 (5-19) 05/05/25 16:54 BUN 26 mg/dL (8-23) H 05/05/25 16:54 Creatinine 0.8 mg/dL (0.5-0.9) 05/05/25 16:54 GFR Calculation Not Reportable 05/05/25 16:54 Glucose 169 mg/dL (65-115) H 05/05/25 16:54 Calculated Osmolality 301 mOsm/kg (285-295) H 05/05/25 16:54 Lactic Acid 1.5 mmol/L (0.5-2.2) 05/05/25 16:54 Calcium 10.1 mg/dL (8.5-10.5) 05/05/25 16:54 Total Bilirubin 0.3 mg/dL (0.15-1.2) 05/05/25 16:54 AST 16 U/L (0-32) 05/05/25 16:54 ALT 14 U/L (0-33) 05/05/25 16:54 Alkaline Phosphatase 95 U/L (35-105) 05/05/25 16:54 Troponin T Baseline 13 ng/L (0-10) H 05/05/25 16:54 Troponin T 120 Minute 11.01 ng/L (0-10) H 05/05/25 18:44 Delta Troponin T -1.99 ABS# (0-10) L 05/05/25 18:44 Total Protein 5.3 g/dL (6.6-8.7) L 05/05/25 16:54 Albumin 3.5 g/dL (3.5-5.2) 05/05/25 16:54 Globulin 1.8 g/dL (1.3-4.6) 05/05/25 16:54 TSH 5.87 uIU/mL (0.27-4.20) H 05/05/25 16:54 Urine Color Yellow (Yellow) 05/05/25 19:33 Urine Appearance Clear (CLEAR) 05/05/25 19:33 Urine pH 6.5 (5-7) 05/05/25 19:33 Ur Specific [place] 1.041 (1.005-1.030) H 05/05/25 19:33 Urine Protein Negative (Negative) 05/05/25 19:33 Urine Glucose (UA) Negative (Normal) 05/05/25 19:33 Urine Ketones Negative (Negative) 05/05/25 19:33 Urine Blood Negative (Negative) 05/05/25 19:33 Urine Nitrate Negative (Negative) 05/05/25 19:33 Urine Bilirubin Negative (Negative) 05/05/25 19:33 Urine Urobilinogen 0.2 mg/dL (Negative) 05/05/25 19:33 Ur Leukocyte Esterase Negative (Negative) 05/05/25 19:33 Urine RBC 0-2 /hpf (0-2) 05/05/25 19:33 Urine WBC 0-5 /hpf (0-5) 05/05/25 19:33 Ur Squamous Epith Cells 0-5 /hpf (0-5) 05/05/25 19:33 Amorphous Sediment Not Reportable 05/05/25 19:33 Urine Bacteria None seen /hpf (NONE) 05/05/25 19:33 Hyaline Casts 2.46 /lpf 05/05/25 19:33 All radiology interpretation(s) finalized by discharge EKG Data EKG 1: Interpretation: Patient has sinus bradycardia at rate of 54, sinus rhythm, no ST segment elevation, left axis. EKG 2: Interpretation: Sinus bradycardia at rate of 55, left axis deviation, no ST segment elevation, QTc 389 MS Discharge Plan Discharge Patient Disposition: Home Clinical Impression: Syncope due to orthostatic hypotension, Colitis Condition: Stable Prescriptions: New ciprofloxacin HCl 500 mg tablet 500 mg PO Q12H Qty: 20 0RF metronidazole 500 mg tablet 500 mg PO BID 10 Days Qty: 20 0RF ondansetron 4 mg tablet,disintegrating 4 mg PO Q8H PRN (Reason: nausea and vomiting) 4 Days Qty: 14 0RF No Action magnesium oxide 400 mg (241.3 mg magnesium) tablet 400 mg PO DAILY cetirizine 10 mg tablet 5 mg PO DAILY PRN (Reason: Allergy Symptoms) aspirin 325 mg tablet 81 mg PO DAILY losartan 50 mg tablet 50 mg PO DAILY Qty: 90 3RF topiramate [Topamax] 25 mg tablet 25 mg PO BID Qty: 60 0RF lidocaine 5 % ointment 1 applic topical DAILY PRN (Reason: pain) Qty: 50 5RF Rx Instructions: Patient is allergic to corticosteroids pantoprazole [Protonix] 40 mg tablet,delayed release (DR/EC) 40 mg PO DAILY 30 Days Qty: 30 0RF prednisone 20 mg tablet 20 mg PO BID 7 Days Qty: 14 0RF ibuprofen 800 mg tablet 800 mg PO BID PRN (Reason: pain) Qty: 60 0RF rosuvastatin 20 mg tablet 20 mg PO DAILY Qty: 90 3RF carvedilol 12.5 mg tablet See Rx Instructions .ROUTE .COMPLEX Qty: 180 3RF Dose Instruction: TAKE 1 TABLET TWICE DAILY Rx Instructions: TAKE 1 TABLET TWICE DAILY mirabegron [Myrbetriq] 50 mg tablet extended release 24 hr See Rx Instructions .ROUTE .COMPLEX Qty: 30 3RF Dose Instruction: Take 1 tablet by mouth once daily Rx Instructions: Take 1 tablet by mouth once daily amlodipine 10 mg tablet See Rx Instructions .ROUTE .COMPLEX Qty: 90 3RF Dose Instruction: TAKE 1 TABLET EVERY DAY Rx Instructions: TAKE 1 TABLET EVERY DAY Discharge Orders: Discharge ED (Routine); Ordered 05/05/25 Ordered By: Franny Delong Referrals: Reddy Johnson FNP [Primary Care Provider] Discharge Diet: As Directed, Clear Liquid and Full LIquid Patient Instructions: Dehydration (ED), Colitis (ED), Syncope in Older Adults (ED), Patient Portal & Ping Instructions Activity Restrictions/Additional Instructions: - Drink 64 ounces of noncaffeinated beverages daily. This will need to be scheduled throughout the day on a timed schedule. If you are not thirsty, you still need to take your drink. You were severely dehydrated when you return to the ED as proved with your vital signs that dropped. - You will need to follow-up with your doctor. They may want to do a special monitor that was ongoing for a month on your heart. You did not have any drops while you were here. You did not have any acute coronary issues with your lab work. - Take a probiotic or eat active culture yogurt to avoid infectious diarrhea associated with antibiotics - Clear to full liquid diet until your nausea and abdominal pain clears. Do not go above full liquid diet until your abdominal pain is improved - You may then advance your diet to a bland diet -Make sure you eat with your antibiotics. Your antibiotics can cause nausea. -Your antibiotics will cover your urine analysis. If there is any additional concerns, the nurse will call you. Print Language: Bots[place]an Coding Level of Care Code ED Tax Accountant for Rachel Blake
[2025-05-05 17:13] LABS: Hematocrit 39.2 % (36-47); Hemoglobin 12.90 g/dL (11.27-16.99); Mean Corpuscular HGB Conc 32.9 g/dL (30-55); Mean Corpuscular Hemoglobin 29.5 pg (27-33); Mean Corpuscular Volume 89.5 fl (85-98); Nucleated Red Blood Cells % 0 %; Platelet Count 276 10^3/cmm (157-399); Red Blood Count 4.38 10^6/uL (3.85-5.65); White Blood Count 12.11 10^3/uL (3.29-11.43)
[2025-05-05 17:33] LABS: Lactic Sepsis W/Reflex 1.5 mmol/L (0.5-2.2)
[2025-05-05 17:35] LABS: Troponin(5th) Baseline 13 ng/L (0-10)
[2025-05-05 17:44] LABS: Alanine Aminotransferase 14 U/L (0-33); Albumin Level 3.5 g/dL (3.5-5.2); Alkaline Phosphatase 95 U/L (35-105); Aspartate Amino Transferase 16 U/L (0-32); Blood Urea Nitrogen 26 mg/dL (8-23); Calcium 10.1 mg/dL (8.5-10.5); Carbon Dioxide 26 mmol/L (22-29); Chloride 105 mmol/L (98-107); Creatinine Clr Calc Pharmacy 52.1784; Globulin 1.8 g/dL (1.3-4.6); Glucose 169 mg/dL (65-115); Osmolality Calculated 301 mOsm/kg (285-295); Sodium 141 mmol/L (136-145); Thyroid Stimulating Hormone 5.87 uIU/mL (0.27-4.20); Total Protein 5.3 g/dL (6.6-8.7)
[2025-05-05 17:54] LABS: Anion Gap 13.6 (5-19); Potassium 3.6 mmol/L (3.5-5.1)
--- NOTE | 2025-05-05 18:11 | ECG_ITS ---
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 Measurements Intervals [place] Rate: 55 P: 61 SC: 156 QRS: 0 QRSD: 85 T: 35 QT: 400 QTc: 384 Interpretive Statements SINUS BRADYCARDIA MINIMAL ST DEPRESSION [0.025+ mV ST DEPRESSION] Compared to ECG 05/05/2025 17:40:12 ST (T wave) deviation now present Electronically Signed On 05-07-2025 20:25:11 CDT by Norah Bauman M.D. [email or web address] [id number]
[2025-05-05] MEDS: iohexol 350 mg/mL 500 mL Btl (per mL) IV (18:28)
[2025-05-05 19:10] LABS: Troponin 5 2HR 11.01 ng/L (0-10)
[2025-05-05 19:11] LABS: Troponin 5 2HR Delta -1.99 ABS# (0-10)
[2025-05-05 19:45] LABS: Glucose Urine UA Negative (Normal); Nitrate Urine Negative (Negative)
[2025-05-05 19:47] LABS: Add Urine Microscopic? YES
[2025-05-05] MEDS: ondansetron 2 mg/ML SDV 2 mL 4 MG IVP (19:54)
[2025-05-05 20:05] LABS: Specific Gravity, Urine 1.041 (1.005-1.030); UA Slide Review UA Slide Review Perf
== END 2025-05-05 20:08 | disposition home or self-care (01) ==
PROVIDERS: Emergency Provider Physician Assistant; PCP Registered Nurse
DX: I95.1 Orthostatic hypotension (principal); K52.9 Noninfective gastroenteritis and colitis, unspecified; Z79.82 Long term (current) use of aspirin; E78.5 Hyperlipidemia, unspecified; I10 Essential (primary) hypertension
CPT/HCPCS: 36415; 70450; 72125; 74177; 80053; 81001; 83605; 84443; 84484; 85025; 93005; 96374; 99285; J2405; J7120; J9999

== ENCOUNTER → 2025-05-11 14:04 | Outpatient (BNVA) | payer MEDICARE, OTHER, MEDICAID, SELFPAY | PROVIDERS: PCP Registered Nurse; Visit Provider Nurse Practitioner Family | DX: M48.062 Spinal stenosis, lumbar region with neurogenic claudication (principal); M47.816 Spondylosis without myelopathy or radiculopathy, lumbar region | CPT/HCPCS: 99214 ==

== ENCOUNTER → 2025-06-07 12:54 | Outpatient (BNVA) | payer MEDICARE, OTHER, MEDICAID, SELFPAY | PROVIDERS: PCP Registered Nurse; Visit Provider Anesthesiology Pain Medicine | DX: M47.816 Spondylosis without myelopathy or radiculopathy, lumbar region (principal) | CPT/HCPCS: 64635; 64636; J1100; J9999 ==

== ENCOUNTER → 2025-06-21 12:50 | Outpatient (BNVA) | payer MEDICARE, OTHER, MEDICAID, SELFPAY | PROVIDERS: PCP Registered Nurse; Visit Provider Nurse Practitioner Family | DX: M47.816 Spondylosis without myelopathy or radiculopathy, lumbar region (principal); M48.062 Spinal stenosis, lumbar region with neurogenic claudication | CPT/HCPCS: 72190; 72220; 99214 ==

== ENCOUNTER → 2025-06-27 08:24 | Outpatient (BNVA) | payer MEDICARE, OTHER, MEDICAID, SELFPAY | PROVIDERS: PCP Registered Nurse; Visit Provider Dermatology | DX: L82.1 Other seborrheic keratosis (principal); L85.3 Xerosis cutis; Z08 Encounter for follow-up examination after completed treatment for malignant neoplasm; D48.5 Neoplasm of uncertain behavior of skin; L57.0 Actinic keratosis | CPT/HCPCS: 11102; 17000; 99213 ==